=== PATIENT | male | born 1940 | race Caucasian/White ===

== ENCOUNTER → 2018-11-10 09:01 | Outpatient (CLI) | payer MEDICARE, OTHER, SELFPAY ==
--- NOTE | 2018-11-10 | DI.ECHO.S_ITS ---
[facility] +---------+ : : [address] : [place] [address] : : : : [id number] : : : : Phone: [phone]+ Echocardiogram Report + + :Name: LOC VILLALBA Study Date: 11/10/2018 Height: 74 in : :[facility] Weight: 234 lb : : Gender: Male BSA: 2.3 m2 : :: 1940 Age: 78 yrs BP: 152/50 mmHg: :Reason For Study: Chest pain : : Performed By: Louise Patel : :Referring: ZAHIRA GARCIA : + + Interpretation Summary Normal left ventricle size with ejection fraction 60-65%. Diastolic parameters suggest a relaxation abnormality of the left ventricle, consistent with probable normal filling pressures. Mildly dilated left atrium. No valvular abnormality. Mildly dilated aortic root. The ascending aorta is at the upper limits of normal in size. Procedure: A two-dimensional transthoracic echocardiogram with color flow and Doppler was performed. The study quality was technically adequate. There is no prior echocardiogram noted for this patient. The patient was in normal sinus rhythm during the exam. Left Ventricle: The left ventricle is normal in size. There is normal left ventricular wall thickness. The ejection fraction is estimated to be 60-65%. There are no focal wall motion abnormalities. Diastolic parameters suggest a relaxation abnormality of the left ventricle, consistent with probable normal filling pressures. Right Ventricle: The right ventricle grossly appears normal in size with probable normal systolic function. Atria: The left atrium is mildly dilated. Right atrial size is normal. The interatrial septum is intact with no evidence for an atrial septal defect. Mitral Valve: The mitral valve is normal in structure and function. There is no mitral regurgitation noted. Aortic Valve: The aortic valve is trileaflet. The aortic valve opens well. There is trace aortic regurgitation. Tricuspid Valve: The tricuspid valve is normal in structure and function. There is a trace or physiologic amount of tricuspid regurgitation. The right ventricular systolic pressure is estimated to be at least 22 mmHg based on an estimated right atrial pressure of 3 mm Hg. Pulmonic Valve: The pulmonic valve is not well seen, but is grossly normal. There is no pulmonic valvular regurgitation. Great Vessels: The aortic root is mildly dilated. The ascending aorta is at the upper limits of normal in size. The aortic arch is normal in size. The IVC is of normal diameter and collapses greater than 50% with a sniff. This suggests a low right atrial pressure of 3 mm Hg. Pericardium/ Pleura There is no pericardial effusion. There is no pleural effusion. MMode/2D Measurements & Calculations LVIDd: 4.6 cm Ao root diam: 4.1 cm LVIDs: 2.7 cm Aortic Jxn: 3.1 cm FS: 42.3 % asc Aorta Diam: 3.5 cm IVSd: 0.98 cm Ao Arch Diam (Prox Trans): 2.7 cm LVPWd: 0.92 cm LV hodges. diameter/BSA (cm/m^2): 2.0 LV sys. diameter/BSA (cm/m^2): 1.1 LA dimension: 3.8 cm RA long axis: 4.9 cm LA A2 area: 27.8 cm2 RA area: 20.8 cm2 LA A4 area: 24.6 cm2 RA vol: 74.6 ml LA length (vol): 5.8 cm RA : 32.1 ml/m2 LA vol: 100.4 ml IVC diam: 1.4 cm LA vol index: 43.2 ml/m2 RVDd major: 7.0 cm RVD1 (basal): 4.2 cm RVD2 (mid): 3.7 cm Doppler Measurements & Calculations Ao V2 max: 125.4 cm/sec AI P1/2t: 849.9 msec Ao V2 mean: 87.9 cm/sec AI dec slope: 123.6 cm/sec2 Ao max P.3 mmHg Ao mean P.5 mmHg Ao V2 VTI: 28.8 cm MV E max prudencio: 73.3 cm/sec TR max prudencio: 216.1 cm/sec MV A max prudencio: 94.4 cm/sec TR max P.7 mmHg MV E/A: 0.78 PA V2 max: 91.1 cm/sec Med Peak E' Prudencio: 9.8 cm/sec PA V2 mean: 65.3 cm/sec E/E' med: 7.5 PA mean P.9 mmHg Lat Peak E' Prudencio: 8.6 cm/sec PA Accel Time: 0.13 sec E/E' lat: 8.5 E/e' average: 8.0 MV dec time: 0.24 sec MV P1/2t: 70.1 msec MV P1/2t max prudencio: 73.7 cm/sec MVA(P1/2t): 3.1 cm2 Electronically signed by: Moustapha Martin on Reading Physician:11/10/2018 12:43 PM
== END ==
PROVIDERS: PCP Internal Medicine; Visit Provider Internal Medicine
DX: R07.9 Chest pain, unspecified (principal); I51.7 Cardiomegaly
CPT/HCPCS: 93306

== ENCOUNTER → 2019-01-12 08:02 | Outpatient (CLI) | payer MEDICARE, OTHER, SELFPAY ==
[2019-01-12 09:17] LABS: Add Manual Diff / Slide Review NO; Basophils Absolute Auto 0 /uL (0-100); Basophils Percent Auto 0.4 % (0-2); Eosinophils Absolute Auto 100 /uL (0-450); Eosinophils Percent Auto 1.8 % (2-4); Hematocrit 40.4 % (41-53); Hemoglobin 13.9 g/dL (13.5-17.5); Lymphocytes Absolute Auto 1700 /uL (1100-4500); Lymphocytes Percent Auto 25.6 % (25-40); Mean Corpuscular HGB Conc 34.5 % (30-36); Mean Corpuscular Volume 87.1 fL (80-100); Monocytes Absolute Auto 500 /uL (0-900); Monocytes Percent Auto 7.6 % (3-14); Neutrophils Absolute Auto 4200 /uL (1500-7000); Neutrophils Percent Auto 64.6 % (50-75); Platelet Count 187 X10^3/uL (150-400); Red Blood Cell Count 4.64 X10^6/uL (4.5-5.9); Red Cell Distribution Width 13.4 % (11.6-14.8); White Blood Cell Count 6.5 X10^3/uL (4.5-11.0)
[2019-01-12 09:28] LABS: Alanine Aminotransferase 19 IU/L (21-72); Albumin 3.9 g/dL (3.5-5.0); Albumin Globulin Ratio 1.5 (1.0-2.8); Alkaline Phosphatase 58 U/L (38-126); Aspartate Aminotransferase 23 IU/L (17-59); Blood Urea Nitrogen 22 mg/dL (9-20); Carbon Dioxide 31 mmol/L (22-32); Chloride 101 mmol/L (98-107); Cholesterol 101 mg/dL (140-199); Estimated Glomerular Filt Rate > 60.0 mL/min (>60); Globulin 2.6 g/dL (1.7-4.1); Glucose 95 mg/dL (80-110); HDL Cholesterol 42 mg/dL (40-60); HEMOLYSIS < 15 (0-50); LDL Cholesterol Calculated 48 mg/dL (<100); Potassium 4.4 mmol/L (3.4-5.1); Sodium 140 mmol/L (137-145); Total Protein 6.5 g/dL (6.3-8.2); Triglycerides 54 mg/dL (35-150)
[2019-01-12 09:54] LABS: TSH w/ Reflex to FT4 2.72 uIU/mL (0.47-4.68)
[2019-01-12 09:57] LABS: Prostate Specific Antigen 2.26 ng/mL (0.10-4.00)
== END ==
PROVIDERS: PCP Internal Medicine; Visit Provider Internal Medicine
DX: E78.2 Mixed hyperlipidemia (principal); I25.10 Atherosclerotic heart disease of native coronary artery without angina pectoris; N40.0 Benign prostatic hyperplasia without lower urinary tract symptoms
CPT/HCPCS: 36415; 80053; 80061; 84153; 84443; 85025

== ENCOUNTER → 2020-01-23 19:06 | Outpatient (ROUT) | payer MEDICARE, OTHER, SELFPAY ==
[2020-01-23 19:25] LABS: Aspartate Aminotransferase 24 IU/L (17-59); BUN Creatinine Ratio 20.5 (6-22); Blood Urea Nitrogen 24 mg/dL (9-20); Calcium 9.3 mg/dL (8.4-10.2); Carbon Dioxide 30 mmol/L (22-32); Chloride 103 mmol/L (98-107); Cholesterol 112 mg/dL (140-199); Estimated Glomerular Filt Rate > 60.0 mL/min (>60); Glucose 90 mg/dL (80-110); HEMOLYSIS < 15 (0-50); Potassium 4.2 mmol/L (3.4-5.1); Sodium 139 mmol/L (137-145); Triglycerides 174 mg/dL (35-150)
[2020-01-23 19:40] LABS: HDL Cholesterol 47 mg/dL (40-60); LDL Cholesterol Calculated 30 mg/dL (<100)
[2020-01-23 19:56] LABS: Prostate Specific Antigen 2.16 ng/mL (0.10-4.00)
== END ==
PROVIDERS: PCP Internal Medicine; Visit Provider Internal Medicine
DX: I10 Essential (primary) hypertension (principal); E78.2 Mixed hyperlipidemia; N40.0 Benign prostatic hyperplasia without lower urinary tract symptoms
CPT/HCPCS: 80048; 80061; 84153; 84450

== ENCOUNTER 2020-04-19 08:03 | Emergency (ER) | payer MEDICARE, OTHER, SELFPAY ==
--- NOTE | 2020-04-19 08:13 | DI.RAD.S_ITS ---
PROCEDURE: XR CHEST 1V INDICATIONS: chest pain TECHNIQUE: One view of the chest was acquired. COMPARISON: [facility], , CHEST 2 VIEW, 10/09/2013, 14:21. 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 Lungs and pleura: On this semiupright portable chest examination, no large pneumothorax or large pleural effusions are seen. No focal infiltrates are seen. Mediastinum: The cardiac contours are within normal limits. The aorta demonstrates calcification and tortuosity. Bones and chest wall: No suspicious bony lesions. Age-appropriate bony degenerative changes are seen. Overlying soft tissues appear unremarkable. IMPRESSION: Portable chest within normal limits for age. Dictated by: Steven Townsend M.D. on 04/19/2020 at 7:44 Approved by: Steven Townsend M.D. on 04/19/2020 at 7:45
--- NOTE | 2020-04-19 08:15 | ED.CHESTPAIN ---
HPI - Chest Pain General Chief Complaint: Chest Pain Stated Complaint: Chest pain/Lt side Time Seen by Provider: 04/19/20 08:12 Source: patient Mode of arrival: Ambulatory Limitations: no limitations History of Present Illness HPI narrative: 80-year-old male with history of hypertension and hyperlipidemia is a former smoker and presents with a chief complaint of pain on his left side chest wall has been present off and on for about 1 year. He states that sharp in nature an absent of any obvious provocation or palliation. He denies any radiation of his pain. He denies associated symptoms such as dizziness, weakness or lightheadedness. He denies any nausea or vomiting. He denies any unexplained diaphoresis. He denies any exertional component, and in fact states that he routinely exercises with his and has no change in his exercise tolerance or level of fatigue. He denies any injury or overuse. 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 MD complaint: chest pain Onset (ago): month(s) Duration: intermittent Pain location: left chest Severity: moderate Severity scale (1-10): 4 Quality: sharp Pain radiation: none Relieving factors: nothing Exacerbating factors: nothing Treatments prior to arrival chest pain: none Related Data Home Medications Medication Instructions Recorded Confirmed atorvastatin [Lipitor] 10 mg PO Q DAY #0 07/19/11 losartan 100 mg PO QDAY #0 07/19/11 Previous Rx's Medication Instructions Recorded metoprolol succinate [Toprol XL] 50 mg PO QDAY #30 08/03/11 Allergies Allergy/AdvReac Type Severity Reaction Status Date / Time No Known Drug Allergies Allergy Verified 04/19/20 08:26 Review of Systems Constitutional Constitutional: Denies chills, Denies fatigue, Denies fever(s), Denies frequent falls, Denies lethargy and Denies weakness Eyes Eyes: Denies change in vision, Denies eye discharge, Denies irritation and Denies loss of vision ENT Ears, Nose, Mouth, and Throat: Denies change in voice, Denies dizziness, Denies neck pain, Denies sore throat and Denies throat swelling Cardiovascular Cardiovascular: Reports chest pain, Denies irregular heart rhythm, Denies lightheadedness, Denies palpitations, Denies dyspnea, Denies dyspnea on exertion and Denies orthopnea Respiratory Respiratory: Denies cough, Denies dyspnea, Denies dyspnea on exertion and Denies wheezing Gastrointestinal Gastrointestinal: Denies abdominal pain, Denies change in bowel habits, Denies diarrhea, Denies nausea and Denies vomiting Musculoskeletal Musculoskeletal: Denies neck pain and Denies numbness Integumentary/Breasts Skin/Breast: Denies pruritus, Denies erythema, Denies rash and Denies wounds Neurologic Neurologic: Denies behavioral changes, Denies confusion, Denies dizziness, Denies frequent falls, Denies loss of vision, Denies numbness and Denies weakness Psychiatric Psychiatric: Denies anxiety, Denies behavioral changes, Denies confusion, Denies depression, Denies homicidal ideation and Denies suicidal ideation Endocrine Endocrine: Denies fatigue, Denies flushing and Denies palpitations Hematologic/Lymphatic Hematologic/Lymphatic: Denies easy bruising Allergic/Immunologic Allergic/Immunologic: Denies urticaria, Denies throat swelling and Denies wheezing Patient History Social History Smoking Status: Former smoker Smoking Status: Former smoker alcohol intake frequency: 0-2 drinks per day Substance Use Type: does not use Exam Narrative Exam Narrative: GENERAL: [80] year old patient appears stated age. Well-nourished, well-developed patient, in mild distress. HEAD: Atraumatic. Normocephalic. EYES: Pupils equal round and reactive. Extraocular motions intact. No scleral icterus. No injection or drainage. ENT: Nose without bleeding, purulent drainage. Throat without erythema, tonsillar hypertrophy or exudate. Airway patent. NECK: Trachea midline. Non tender CARDIOVASCULAR: Regular rate and rhythm without murmurs, gallops, or rubs. Reproducible sharp pain on left lower lateral rib. No obvious external manifestation of injury or illness such as erythema or rash RESPIRATORY: Clear to auscultation. Breath sounds equal bilaterally. No wheezes, rales, or rhonchi. GASTROINTESTINAL: Abdomen soft, non-tender, nondistended. EXTREMITIES: No edema or joint tenderness. BACK: Nontender without deformity or crepitance. No flank tenderness. NEURO: AOx3. SKIN: No rash or erythema of visible areas Initial Vital Signs Initial Vital Signs: Vital Signs Temperature 98.4 F 04/19/20 08:22 Pulse Rate 88 04/19/20 08:22 Respiratory Rate 18 01/02/21 08:22 Blood Pressure 194/85 H 04/19/20 08:22 Pulse Oximetry 99 04/19/20 08:22 Scores HEART Score Heart Score history: Slightly Suspicious Heart Score EKG: Normal Heart Score Age: > or = 65 years old Heart Score risk factors: 1-2 risk factors Heart Score troponin: < or = to normal limit Heart Score Total: 3 PERC Score Age greater than or equal to 50 years: Yes Heart rate greater than or equal to 100 bpm: No Room Air O2 Sat less than 95%: No Unilateral leg swelling: No Recent trauma or surgery: No Hemoptysis: No Prior PE or DVT: No Hormone Use: No Total PERC Score: 1 Wells' Criteria for PE Clinical signs and symptoms of DVT: No PE is #1 Dx or equally likely: No Heart rate > 100: No Immobilization at least 3 days or surg in previous 4 weeks: No History of PE or DVT: No Hemoptysis: No Malignancy w/Treatment within 6 months or palliative: No Wells' PE Score total: 0 Course Orders Ordered: ED Orders 04/19/20 08:55 COVID19 Stat Discontinued Medications Acetaminophen (Acetaminophen 325 Mg Tablet) 975 mg PO NOW ONE Stop: 04/19/20 08:43 Aspirin (Aspirin 81 Mg Chew Tab) 324 mg PO NOW ONE Stop: 04/19/20 08:14 Last Admin: 04/19/20 08:37 Dose: 324 mg Documented by: STEFANY Sodium Chloride (Normal Saline 0.9%) 1,000 mls @ 150 mls/hr IV CONT AMADA Last Infusion: 04/19/20 10:34 Dose: 0 mls/hr Documented by: Admin: 04/19/20 08:38 Dose: 150 mls/hr Documented by: STEFANY Metoprolol Tartrate (Metoprolol Tartrate 5 Mg/5 Ml Inj) 5 mg IV NOW ONE Stop: 04/19/20 08:14 Nitroglycerin (Nitroglycerin 0.4 Mg Sl Tab) 0.4 mg SL [id number] PRN PRN Reason: Chest Pain Last Admin: 04/19/20 08:56 Dose: 0.4 mg Documented by: Admin: 04/19/20 08:47 Dose: 0.4 mg Documented by: Admin: 04/19/20 08:38 Dose: 0.4 mg Documented by: STEFANY Reevaluation(s) Reevaluation #1: NG improving pain, developing DASH Time: 08:47 Consultations Consultation #1: Discussed with on-call Cardiology in [place]. Given his resolution of symptoms with nitro, lack of ischemic findings on EKGs, normal troponin and normal D-dimer they recommend increasing long-acting nitrate from 30-60 mg daily, give appropriate return precautions and request referral to their cardiology They specifically state there is no indication for admission or transfer this point time Vital Signs Vital signs: Vital Signs - 8 hr 04/19/20 10:36 Pulse Rate 62 Respiratory Rate 16 Blood Pressure 131/60 Pulse Oximetry 98 MDM - Chest Pain Lab Data Result diagrams: 04/19/20 08:15 04/19/20 08:15 Labs: Lab Results 04/19/20 04/19/20 04/19/20 Range/Units 08:15 08:15 08:15 WBC 8.2 (4.5-11.0) X10^3/uL RBC 5.00 (4.5-5.9) X10^6/uL Hgb 14.7 (13.5-17.5) g/dL Hct 43.2 (41-53) % MCV 86.4 (80-100) fL MCH 29.3 (26-34) PG MCHC 34.0 (30-36) % RDW 13.6 (11.6-14.8) % Plt Count 186 (150-400) X10^3/uL Neut % (Auto) 62.7 (50-75) % Lymph % (Auto) 27.0 (25-40) % Lamb % (Auto) 8.4 (3-14) % Eos % (Auto) 1.4 L (2-4) % Baso % (Auto) 0.5 (0-2) % Neut # (Auto) 5200 (5079-5188) /uL Lymph # (Auto) 2200 (6196-4951) /uL Lamb # (Auto) 700 (0-900) /uL Eos # (Auto) 100 (0-450) /uL Baso # (Auto) 0 (0-100) /uL PT 12.0 (10.1-12.7) SECONDS INR 1.0 (0.9-1.3) APTT 30 (26.4-36.2) SECONDS D-Dimer (<230) ng/mL Sodium 137 (137-145) mmol/L Potassium 3.8 (3.4-5.1) mmol/L Chloride 102 (98-107) mmol/L Carbon Dioxide 31 (22-32) mmol/L BUN 23 H (9-20) mg/dL Creatinine 0.99 (0.66-1.25) mg/dL Estimated GFR > 60.0 (>60) mL/min BUN/Creatinine Ratio 23.2 H (6-22) Glucose 140 H (80-110) mg/dL Calcium 9.1 (8.4-10.2) mg/dL Total Bilirubin 2.0 H (0.2-1.3) mg/dL AST 25 (17-59) IU/L ALT 20 (<50) IU/L Alkaline Phosphatase 58 (38-126) U/L Total Creatine Kinase 87 (55-170) U/L CK-MB (CK-2) TNP CK-MB (CK-2) Rel Index TNP Troponin I < 0.012 (0.01-0.034) ng/mL NT-Pro-B Natriuret Pep 159 (<450) pg/mL Total Protein 6.9 (6.3-8.2) g/dL Albumin 4.1 (3.5-5.0) g/dL Globulin 2.8 (1.7-4.1) g/dL Albumin/Globulin Ratio 1.5 (1.0-2.8) Lipase 95 (23-300) U/L SARS-CoV-2 (PCR) (Negative) 04/19/20 04/19/20 Range/Units 08:15 08:55 WBC (4.5-11.0) X10^3/uL RBC (4.5-5.9) X10^6/uL Hgb (13.5-17.5) g/dL Hct (41-53) % MCV (80-100) fL MCH (26-34) PG MCHC (30-36) % RDW (11.6-14.8) % Plt Count (150-400) X10^3/uL Neut % (Auto) (50-75) % Lymph % (Auto) (25-40) % Lamb % (Auto) (3-14) % Eos % (Auto) (2-4) % Baso % (Auto) (0-2) % Neut # (Auto) (8401-6619) /uL Lymph # (Auto) (2306-3404) /uL Lamb # (Auto) (0-900) /uL Eos # (Auto) (0-450) /uL Baso # (Auto) (0-100) /uL PT (10.1-12.7) SECONDS INR (0.9-1.3) APTT (26.4-36.2) SECONDS D-Dimer < 200 (<230) ng/mL Sodium (137-145) mmol/L Potassium (3.4-5.1) mmol/L Chloride (98-107) mmol/L Carbon Dioxide (22-32) mmol/L BUN (9-20) mg/dL Creatinine (0.66-1.25) mg/dL Estimated GFR (>60) mL/min BUN/Creatinine Ratio (6-22) Glucose (80-110) mg/dL Calcium (8.4-10.2) mg/dL Total Bilirubin (0.2-1.3) mg/dL AST (17-59) IU/L ALT (<50) IU/L Alkaline Phosphatase (38-126) U/L Total Creatine Kinase (55-170) U/L CK-MB (CK-2) CK-MB (CK-2) Rel Index Troponin I (0.01-0.034) ng/mL NT-Pro-B Natriuret Pep (<450) pg/mL Total Protein (6.3-8.2) g/dL Albumin (3.5-5.0) g/dL Globulin (1.7-4.1) g/dL Albumin/Globulin Ratio (1.0-2.8) Lipase (23-300) U/L SARS-CoV-2 (PCR) Negative (Negative) Imaging Data Chest x-ray: Radiologist's Impression: [address] [id number] ReportSigned Patient: Helder Quintanilla [facility]#: [id number]: 1Acct:[id number]/Sex: 80 / MDate of Service: 04/19/20Loc: EDAccession Number: [id number] Procedure: XR chest 1V Ordering Provider: Galo Go D.O. PROCEDURE: XR CHEST 1V INDICATIONS: chest pain TECHNIQUE: One view of the chest was acquired. COMPARISON: [facility], CHEST 2 VIEW, 10/09/2013, 14:21. 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 Lungs and pleura: On this semiupright portable chest examination, no large pneumothorax or large pleural effusions are seen. No focal infiltrates are seen. Mediastinum: The cardiac contours are within normal limits. The aorta demonstrates calcification and tortuosity. Bones and chest wall: No suspicious bony lesions. Age-appropriate bony degenerative changes are seen. Overlying soft tissues appear unremarkable. IMPRESSION: Portable chest within normal limits for age. Dictated by: Steven Townsend M.D. on 04/19/2020 at 7:44 Approved by: Steven Townsend M.D. on 04/19/2020 at 7:45 ECG Data Attestation: I personally reviewed and interpreted this ECG as follows: Interpretation: Sinus arrhythmia, rate 70. No ST elevations or depressions. No T-wave peaking or inversions. Appropriate R-wave progression. No ectopy. Discharge Plan Departure Patient Disposition: Home Clinical Impression: Stable angina Instructions: DI for Angina Activity Restrictions/Additional Instructions: *You have been diagnosed with [chest pain, likely due to angina] *What to do: *Take medications as directed: After speaking with Cardiology at [facility] they request you increase your Isosorbide Mononitrate from 30mg daily to 60mg daily. Be sure you don't take any Cialis or Viagra along with this as it can cause a significant blood pressure drop. *Follow up with your primary care provider in 2-3 days, call for an appointment. Let them know you were seen in the Emergency Department and that we ask that you be seen in follow up. The cardiology group requests Dr.. Christina put in an urgent referral to their group. *Return to ER if you should have any new, worsening or concerning symptoms, such as [return of pain, shortness of breath, unexplained sweating or other ] Prescriptions: No Action atorvastatin [Lipitor] 10 MG tablet 10 mg PO Q DAY Qty: 0 RF: 0 losartan 100 MG tablet 100 mg PO QDAY Qty: 0 RF: 0 metoprolol succinate [Toprol XL] 50 MG tablet extended release 24 hr 50 mg PO QDAY Qty: 30 RF: 2 Referrals: August Christina MD [Primary Care Provider] - Dimas Garecs [Non-Staff] -
[2020-04-19 08:22] VITALS: BP 194/85; PULSE 88; RESP 18; TEMP 36.9; O2SAT 99; BMI 29.8
[2020-04-19 08:23] LABS: Add Manual Diff / Slide Review NO; Basophils Absolute Auto 0 /uL (0-100); Basophils Percent Auto 0.5 % (0-2); Eosinophils Absolute Auto 100 /uL (0-450); Eosinophils Percent Auto 1.4 % (2-4); Hematocrit 43.2 % (41-53); Hemoglobin 14.7 g/dL (13.5-17.5); Lymphocytes Absolute Auto 2200 /uL (1100-4500); Mean Corpuscular Hemoglobin 29.3 PG (26-34); Mean Corpuscular Volume 86.4 fL (80-100); Monocytes Absolute Auto 700 /uL (0-900); Monocytes Percent Auto 8.4 % (3-14); Neutrophils Absolute Auto 5200 /uL (1500-7000); Neutrophils Percent Auto 62.7 % (50-75); Platelet Count 186 X10^3/uL (150-400); Red Cell Distribution Width 13.6 % (11.6-14.8); White Blood Cell Count 8.2 X10^3/uL (4.5-11.0)
[2020-04-19 08:31] LABS: PTT Partial Thromboplastin Tim 30 SECONDS (26.4-36.2)
[2020-04-19 08:33] LABS: Alanine Aminotransferase 20 IU/L (<50); Albumin 4.1 g/dL (3.5-5.0); Albumin Globulin Ratio 1.5 (1.0-2.8); Alkaline Phosphatase 58 U/L (38-126); Aspartate Aminotransferase 25 IU/L (17-59); BUN Creatinine Ratio 23.2 (6-22); Blood Urea Nitrogen 23 mg/dL (9-20); Calcium 9.1 mg/dL (8.4-10.2); Carbon Dioxide 31 mmol/L (22-32); Chloride 102 mmol/L (98-107); Creatine Kinase 87 U/L (55-170); Estimated Glomerular Filt Rate > 60.0 mL/min (>60); Globulin 2.8 g/dL (1.7-4.1); Glucose 140 mg/dL (80-110); HEMOLYSIS 17 (0-50); Lipase 95 U/L (23-300); Potassium 3.8 mmol/L (3.4-5.1); Sodium 137 mmol/L (137-145); Total Protein 6.9 g/dL (6.3-8.2)
[2020-04-19] MEDS: ASPIRIN 81 MG CHEW TAB 324 MG PO (08:37)
[2020-04-19 08:38] VITALS: BP 138/65; PULSE 77
[2020-04-19] MEDS: NITROGLYCERIN 0.4 MG SL TAB SL ×3 (08:38→08:56)
[2020-04-19] MEDS: SODIUM CHLORIDE 0.9% 1,000 ML 150 ML IV (08:38)
[2020-04-19 08:45] LABS: NT-proBNP (BNP-Adult 18+) 159 pg/mL (<450); Troponin I < 0.012 ng/mL (0.01-0.034)
[2020-04-19 08:46] LABS: D Dimer < 200 ng/mL (<230)
[2020-04-19 08:47] VITALS: BP 125/60; PULSE 60
[2020-04-19 08:56] VITALS: BP 122/60; PULSE 62
[2020-04-19 09:11] LABS: COVID19 -Nasal RAPID Negative (Negative)
[2020-04-19 10:36] VITALS: BP 131/60; PULSE 62; RESP 16; O2SAT 98
== END 2020-04-19 10:39 | disposition home or self-care (01) ==
PROVIDERS: Emergency Provider Emergency Medicine; PCP Internal Medicine
DX: I20.8 Other forms of angina pectoris (principal); I10 Essential (primary) hypertension; E78.5 Hyperlipidemia, unspecified; Z20.822 Contact with and (suspected) exposure to COVID-19
CPT/HCPCS: 36415; 71045; 80053; 82550; 83690; 83880; 84484; 85025; 85379; 85610; 85730; 87635; 93005; 96360; 96361; 99283; 99284

== ENCOUNTER → 2021-12-25 09:34 | Outpatient (CLI) | payer MEDICARE, OTHER, SELFPAY ==
[2021-12-25 10:21] LABS: Hematocrit 40.8 % (41-53); Mean Corpuscular HGB Conc 34.3 % (30-36); Mean Corpuscular Hemoglobin 29.4 PG (26-34); Mean Corpuscular Volume 85.8 fL (80-100); Platelet Count 182 X10^3/uL (150-400); Red Blood Cell Count 4.76 X10^6/uL (4.5-5.9); Red Cell Distribution Width 14.3 % (11.6-14.8)
[2021-12-25 11:16] LABS: Alanine Aminotransferase 19 IU/L (<50); Albumin 3.9 g/dL (3.5-5.0); Albumin Globulin Ratio 1.4 (1.0-2.8); Alkaline Phosphatase 64 U/L (38-126); Aspartate Aminotransferase 25 IU/L (17-59); BUN Creatinine Ratio 22.9 (6-22); Bilirubin Total 2.3 mg/dL (0.2-1.3); Blood Urea Nitrogen 22 mg/dL (9-20); Calcium 8.6 mg/dL (8.4-10.2); Carbon Dioxide 30 mmol/L (22-32); Chloride 100 mmol/L (98-107); Cholesterol 105 mg/dL (140-199); Estimated Glomerular Filt Rate > 60 mL/min (>60); Globulin 2.8 g/dL (1.7-4.1); Glucose 92 mg/dL (80-110); HDL Cholesterol 43 mg/dL (40-60); HEMOLYSIS < 15 (0-50); LDL Cholesterol Calculated 47 mg/dL (<100); Potassium 3.9 mmol/L (3.4-5.1); Sodium 137 mmol/L (137-145); Total Protein 6.7 g/dL (6.3-8.2); Triglycerides 76 mg/dL (35-150)
[2021-12-25 11:47] LABS: TSH w/ Reflex to FT4 1.93 uIU/mL (0.47-4.68)
[2021-12-25 12:05] LABS: Vitamin B12 204 pg/mL (239-931)
== END ==
PROVIDERS: PCP Internal Medicine; Referring Provider Internal Medicine; Visit Provider Internal Medicine
DX: E53.8 Deficiency of other specified B group vitamins (principal); E78.2 Mixed hyperlipidemia; G62.9 Polyneuropathy, unspecified; I10 Essential (primary) hypertension; I25.118 Atherosclerotic heart disease of native coronary artery with other forms of angina pectoris
CPT/HCPCS: 36415; 80053; 80061; 82607; 84443; 85027

== ENCOUNTER → 2022-06-29 07:48 | Outpatient (CLI) | payer MEDICARE, OTHER, SELFPAY ==
[2022-06-29 09:04] LABS: HEMOLYSIS < 15 (0-50)
[2022-06-29 09:13] LABS: Aspartate Aminotransferase 24 IU/L (17-59); BUN Creatinine Ratio 18.6 (6-22); Blood Urea Nitrogen 16 mg/dL (9-20); Calcium 8.9 mg/dL (8.4-10.2); Carbon Dioxide 33 mmol/L (22-32); Chloride 102 mmol/L (98-107); Cholesterol 106 mg/dL (140-199); Estimated Glomerular Filt Rate > 60 mL/min (>60); Glucose 91 mg/dL (80-110); HDL Cholesterol 45 mg/dL (40-60); LDL Cholesterol Calculated 48 mg/dL (<100); Sodium 141 mmol/L (137-145); Triglycerides 66 mg/dL (35-150)
[2022-06-29 09:59] LABS: Vitamin B12 304 pg/mL (239-931)
[2022-07-02 04:59] LABS: Prostate Specific Antigen 2.18 ng/mL (0.10-4.00)
== END ==
PROVIDERS: PCP Internal Medicine; Referring Provider Internal Medicine; Visit Provider Internal Medicine
DX: E78.2 Mixed hyperlipidemia (principal); N40.0 Benign prostatic hyperplasia without lower urinary tract symptoms; E53.8 Deficiency of other specified B group vitamins; I10 Essential (primary) hypertension; I25.10 Atherosclerotic heart disease of native coronary artery without angina pectoris
CPT/HCPCS: 36415; 80048; 80061; 82607; 84153; 84450

== ENCOUNTER → 2023-07-04 08:34 | Outpatient (CLI) | payer MEDICARE, OTHER, SELFPAY ==
[2023-07-04 09:38] LABS: Hematocrit 40.8 % (41-53); Mean Corpuscular HGB Conc 34.3 % (30-36); Mean Corpuscular Hemoglobin 29.5 PG (26-34); Mean Corpuscular Volume 86.1 fL (80-100); Platelet Count 187 X10^3/uL (150-400); Red Blood Cell Count 4.74 X10^6/uL (4.5-5.9); Red Cell Distribution Width 13.9 % (11.6-14.8); White Blood Cell Count 6.2 X10^3/uL (4.5-11.0)
[2023-07-04 10:08] LABS: Aspartate Aminotransferase 24 IU/L (17-59); BUN Creatinine Ratio 22.9 (6-22); Blood Urea Nitrogen 22 mg/dL (9-20); Carbon Dioxide 30 mmol/L (22-32); Chloride 104 mmol/L (98-107); Cholesterol 100 mg/dL (140-199); Estimated Glomerular Filt Rate > 60 mL/min (>60); Glucose 101 mg/dL (80-110); HDL Cholesterol 50 mg/dL (40-60); HEMOLYSIS < 15 (0-50); LDL Cholesterol Calculated 38 mg/dL (<100); Potassium 4.1 mmol/L (3.4-5.1); Sodium 138 mmol/L (137-145); Triglycerides 60 mg/dL (35-150)
[2023-07-04 10:28] LABS: Prostate Specific Antigen 3.35 ng/mL (0.10-4.00)
[2023-07-04 10:47] LABS: Vitamin B12 260 pg/mL (239-931)
== END ==
PROVIDERS: PCP Internal Medicine; Referring Provider Internal Medicine; Visit Provider Internal Medicine
DX: E53.8 Deficiency of other specified B group vitamins (principal); I10 Essential (primary) hypertension; N40.1 Benign prostatic hyperplasia with lower urinary tract symptoms; E78.2 Mixed hyperlipidemia; N13.8 Other obstructive and reflux uropathy
CPT/HCPCS: 36415; 80048; 80061; 82607; 84153; 84450; 85027

== ENCOUNTER → 2024-04-10 11:31 | Outpatient (CLI) | payer MEDICARE, OTHER, SELFPAY ==
--- NOTE | 2024-04-10 11:32 | DI.RAD.S_ITS ---
PROCEDURE: XR LUMBAR SPINE 2-3V INDICATIONS: spinal stenosis TECHNIQUE: 3 views of the lumbar spine were acquired. COMPARISON: None. FINDINGS: Bones: 5 [id number] vertebrae are present. There is normal bony alignment. No vertebral body compression fractures. No suspicious bony lesions. Moderate degenerative disc changes throughout the lumbar spine. Mild facet hypertrophy throughout the lumbar spine. Soft tissues: Overlying bowel gas pattern is normal. No suspicious soft tissue calcifications. IMPRESSION: Multilevel degenerative disc disease. Multilevel facet arthropathy. No fracture. No acute osseous lesion. If symptoms and/or clinical suspicion for pathology persists, evaluation with MRI should be considered for further assessment. Dictated by: Marija Stone MD, PhD on 04/10/2024 at 12:26 Approved by: Marija Stone MD, PhD on 04/10/2024 at 12:32
== END ==
PROVIDERS: PCP Internal Medicine; Referring Provider Internal Medicine; Visit Provider Internal Medicine
DX: M48.062 Spinal stenosis, lumbar region with neurogenic claudication (principal); M51.369 Other intervertebral disc degeneration, lumbar region without mention of lumbar back pain or lower extremity pain; M47.816 Spondylosis without myelopathy or radiculopathy, lumbar region
CPT/HCPCS: 72100

== ENCOUNTER → 2024-04-12 10:59 | Outpatient (CLI) | payer MEDICARE, OTHER, SELFPAY ==
--- NOTE | 2024-04-12 11:01 | DI.MRI.S_ITS ---
PROCEDURE: MR LUMBAR SPINE WO CON INDICATIONS: spinal stenosis TECHNIQUE: Noncontrast sagittal T1 spin echo and T2 fast echo, sagittal STIR, and T2 fast spin echo through the lumbar spine. In cases with scoliosis, additional coronal T2 fast spin echo may be performed. COMPARISON: None. FINDINGS: Alignment and Curvature: L5 pars defects and grade 1 anterior spondylolisthesis at L5-S1 Bone Marrow: Multilevel degenerative endplate changes Spinal Cord: Conus medullaris terminates at the L1 level. Visualized cord demonstrates normal signal and size. Paraspinous Soft Tissues: Fatty atrophy of the paraspinal musculature, right greater than left, particularly at the L2 level T12-L1: No central or foraminal stenosis L1-L2: No central or foraminal stenosis L2-L3: Disc bulge and arthropathy. Mild central stenosis. Moderate bilateral foraminal stenosis L3-L4: Disc bulge and arthropathy. Mild central stenosis. Moderate bilateral foraminal stenosis L4-L5: Disc bulge and arthropathy. [id number] central stenosis Moderate to severe bilateral foraminal stenosis L5-S1: Disc bulge and arthropathy. Mild central stenosis. Severe bilateral foraminal stenosis. IMPRESSION: Multilevel degenerative disc disease and arthropathy results in varying degrees of central and foraminal stenosis including mild to moderate central stenosis L4-5 and severe bilateral foraminal stenosis L5-S1. Grade 1 isthmic spondylolisthesis at L5-S1 Approved by: Clarence Aguiar M.D. on 04/12/2024 at 18:09
== END ==
PROVIDERS: PCP Internal Medicine; Referring Provider Internal Medicine; Visit Provider Internal Medicine
DX: M48.062 Spinal stenosis, lumbar region with neurogenic claudication (principal); M48.07 Spinal stenosis, lumbosacral region; M43.17 Spondylolisthesis, lumbosacral region; M51.369 Other intervertebral disc degeneration, lumbar region without mention of lumbar back pain or lower extremity pain; M51.379 Other intervertebral disc degeneration, lumbosacral region without mention of lumbar back pain or lower extremity pain; M47.816 Spondylosis without myelopathy or radiculopathy, lumbar region; M47.817 Spondylosis without myelopathy or radiculopathy, lumbosacral region
CPT/HCPCS: 72148

== ENCOUNTER → 2024-06-17 13:31 | Outpatient (CLI) | payer MEDICARE, OTHER, SELFPAY ==
--- NOTE | 2024-06-17 13:36 | DI.MRI.S_ITS ---
PROCEDURE: MR LUMBAR SPINE WO CON INDICATIONS: DISEASES OF SPINAL CORD TECHNIQUE: Noncontrast sagittal T1 spin echo and T2 fast echo, sagittal STIR, and T2 fast spin echo through the lumbar spine. In cases with scoliosis, additional coronal T2 fast spin echo may be performed. COMPARISON: [facility], MR, MR LUMBAR SPINE WO CON, 04/12/2024, 11:22. FINDINGS: Image quality: Excellent. Alignment and Curvature: Grade 1 anterolisthesis of L5 on S1 with bilateral pars interarticularis defects. Mild levocurvature. Bone Marrow: Multilevel degenerative endplate changes. Marrow is of normal overall signal. No acute vertebral body compression fractures. Spinal Cord: Conus medullaris terminates at the L1 level. Visualized cord demonstrates normal signal and size. Paraspinous Soft Tissues: No paravertebral masses. T12-L1: Normal appearance. L1-L2: Normal appearance. L2-L3: Disc desiccation and moderate height loss. Diffuse disc bulge with posterior annular tear. Facet arthropathy. Mild central canal stenosis. Moderate bilateral neural foraminal stenosis is stable. L3-L4: Disc desiccation and moderate height loss. Diffuse disc bulge. Facet arthropathy and thickening of ligamentum flavum. Mild central canal stenosis. Moderate bilateral neural foraminal stenosis is stable. L4-L5: Disc desiccation and mild diffuse disc bulge. Facet arthropathy and thickening of ligamentum flavum. Stable mild to moderate central canal stenosis and moderate to severe bilateral neural foraminal stenosis. L5-S1: Anterolisthesis. Disc desiccation and moderate height loss. Facet arthropathy. Mild central canal stenosis. Severe bilateral neural foraminal stenosis. Stable compared to prior. IMPRESSION: 1. Multilevel degenerative changes of the lumbar spine are similar compared to recent prior MRI. 2. [id number] central canal stenosis at L4-5. Multilevel mild central canal stenosis. 3. Severe bilateral neural foraminal stenosis at L5-S1. Moderate to severe bilateral neural foraminal stenosis at L4-5. Dictated by: Be Baron M.D. on 06/18/2024 at 11:12 Approved by: Be Baron M.D. on 06/18/2024 at 11:19
--- NOTE | 2024-06-17 13:36 | DI.MRI.S_ITS ---
PROCEDURE: MR THORACIC SPINE WO CON INDICATIONS: DISEASES OF SPINAL CORD TECHNIQUE: Noncontrast sagittal T1 spine echo and T2 fast spin echo, sagittal STIR, and T2 fast spin echo through the thoracic spine. COMPARISON: None. FINDINGS: Image quality: Excellent. Alignment and Curvature: There is normal bony alignment. Bone Marrow: Multilevel degenerative endplate changes. T11 and T12 vertebral body hemangioma. Marrow is of normal overall signal. No acute vertebral body compression fractures. Spinal Cord: Visualized spinal cord is normal in size and signal. Paraspinous Soft Tissues: No paravertebral masses. Miscellaneous: Multilevel disc desiccation height loss with small posterior disc bulges. On axial images, central canal and foramina appear widely patent at all scanned levels. IMPRESSION: Multilevel degenerative changes of the thoracic spine without significant central canal or neural foraminal stenosis. Dictated by: Be Baron M.D. on 06/18/2024 at 10:37 Approved by: Be Baron M.D. on 06/18/2024 at 10:39
--- NOTE | 2024-06-17 14:25 | DI.RAD.S_ITS ---
PROCEDURE: XR LUMBAR SPINE MIN 4V INDICATIONS: LUMBAR TECHNIQUE: 5 views of the lumbar spine acquired, including flexion and extension views. COMPARISON: [facility], CR, XR LUMBAR SPINE 2-3V, 04/10/2024, 11:32. FINDINGS: Bones: 5 nonrib-bearing vertebrae are present. Slight leftward curvature. No compression deformities. Grade 1 retrolisthesis of L3 on L4 and L2 on L3, which is stable with flexion and extension. Moderate disc height loss at all levels, with facet arthrosis from L4 through S1. Pars defects at L5-S1. Stable grade 1 anterolisthesis of L5 on S1 with flexion and extension. Soft tissues: Overlying bowel gas pattern is normal. No suspicious soft tissue calcifications. Flexion/extension: There is normal range of motion, with preserved alignment. IMPRESSION: Stable grade 1 retrolisthesis of L3 on L4 and L2 on L3, which is stable with flexion and extension. Stable grade 1 anterolisthesis of L5 on S1 due to pars defects. Dictated by: Darrin Hairston M.D. on 06/17/2024 at 21:17 Approved by: Darrin Hairston M.D. on 06/17/2024 at 21:19
--- NOTE | 2024-06-17 14:43 | DI.MRI.S_ITS ---
PROCEDURE: MR CERVICAL SPINE WO CON INDICATIONS: DISEASES OF SPINAL CORD TECHNIQUE: Noncontrast sagittal T1 spin echo and T2 fast spin echo, sagittal STIR, foraminal oblique sagittal T2 fast spin echo, and axial gradient echo or T2 fast spin echo through the cervical spine. COMPARISON: None. FINDINGS: Image quality: Excellent. Alignment and Curvature: Straightening of the normal cervical lordosis. Mild retrolisthesis of L3 on L4. Mild anterolisthesis of L4 on L5. Bone Marrow: Multilevel degenerative endplate changes. Marrow demonstrates normal overall signal. Spinal Cord: Visualized spinal cord has normal size and signal. No cerebellar tonsillar herniation. Paraspinous Soft Tissues: No paravertebral masses. Prevertebral soft tissues are normal in thickness. C2-C3: Disc desiccation and mild posterior disc osteophyte complex. Facet and uncovertebral arthropathy. Mild central canal stenosis. Moderate to severe right and no left neural foraminal stenosis. C3-C4: Disc desiccation and mild height loss. Mild posterior disc osteophyte complex. Facet and uncovertebral arthropathy. Mild central canal stenosis. Severe bilateral neural foraminal stenosis. C4-C5: Disc desiccation and mild posterior disc bulge. Facet and uncovertebral arthropathy. No significant central canal stenosis. Severe right and at least moderate left neural foraminal stenosis. C5-C6: Disc desiccation and mild height loss. Mild posterior disc osteophyte complex. Facet and uncovertebral arthropathy. No central canal stenosis. Mild bilateral neural foraminal stenosis. C6-C7: Disc desiccation and severe height loss. Posterior disc osteophyte complex. Facet arthropathy. No significant central canal stenosis. Mild bilateral neural foraminal stenosis. C7-T1: Disc desiccation and mild height loss. Posterior disc osteophyte complex. Facet and uncovertebral arthropathy. Moderate to severe right and mild left neural foraminal stenosis. IMPRESSION: 1. Multilevel degenerative changes of the cervical spine as described above. 2. Mild central canal stenosis at C2-C3 and C3-C4. 3. Severe neural foraminal stenosis bilaterally at C3-C4 and on the right at C4-C5. Additional multilevel neural foraminal stenosis as described above. Dictated by: Be Baron M.D. on 06/18/2024 at 10:31 Approved by: Be Baron M.D. on 06/18/2024 at 10:37
== END ==
PROVIDERS: PCP Internal Medicine; Referring Provider Anesthesiology Pain Medicine; Visit Provider Anesthesiology Pain Medicine
DX: M47.812 Spondylosis without myelopathy or radiculopathy, cervical region (principal); M48.02 Spinal stenosis, cervical region; M47.814 Spondylosis without myelopathy or radiculopathy, thoracic region; M48.04 Spinal stenosis, thoracic region; M47.26 Other spondylosis with radiculopathy, lumbar region; M47.27 Other spondylosis with radiculopathy, lumbosacral region; M43.16 Spondylolisthesis, lumbar region; M43.17 Spondylolisthesis, lumbosacral region; M48.061 Spinal stenosis, lumbar region without neurogenic claudication; M48.07 Spinal stenosis, lumbosacral region; G95.9 Disease of spinal cord, unspecified
CPT/HCPCS: 72110; 72141; 72146; 72148

== ENCOUNTER → 2024-08-01 08:32 | Outpatient (CLI) | payer MEDICARE, OTHER, SELFPAY ==
[2024-08-01 10:18] LABS: Aspartate Aminotransferase 21 IU/L (17-59); BUN Creatinine Ratio 26.9 (6-22); Blood Urea Nitrogen 28 mg/dL (9-20); Calcium 9.3 mg/dL (8.4-10.2); Carbon Dioxide 28 mmol/L (22-32); Chloride 103 mmol/L (98-107); Cholesterol 93 mg/dL (140-199); Estimated Glomerular Filt Rate > 60 mL/min (>60); Glucose 65 mg/dL (80-110); HDL Cholesterol 41 mg/dL (40-60); HEMOLYSIS < 15 (0-50); LDL Cholesterol Calculated 40 mg/dL (<100); Potassium 3.9 mmol/L (3.4-5.1); Sodium 140 mmol/L (137-145); Triglycerides 60 mg/dL (35-150)
[2024-08-01 10:47] LABS: Prostate Specific Antigen 2.94 ng/mL (0.10-4.00)
[2024-08-01 11:06] LABS: Vitamin B12 764 pg/mL (239-931)
== END ==
PROVIDERS: PCP Internal Medicine; Referring Provider Internal Medicine; Visit Provider Internal Medicine
DX: I10 Essential (primary) hypertension (principal); E78.2 Mixed hyperlipidemia; E53.8 Deficiency of other specified B group vitamins
CPT/HCPCS: 36415; 80048; 80061; 82607; 84153; 84450

== ENCOUNTER → 2024-08-23 13:09 | Outpatient (CLI) | payer MEDICARE, OTHER, SELFPAY ==
--- NOTE | 2024-08-23 13:12 | DI.RAD.S_ITS ---
PROCEDURE: XR SHOULDER RT MIN 2V INDICATIONS: RT SHOULDER PAIN TECHNIQUE: 3 views of the shoulder were acquired. COMPARISON: None. FINDINGS: Bones: No fractures or dislocations. The humeral head is high-riding and there is moderate glenohumeral joint space narrowing and marginal osteophytosis. A surgical anchor overlies the humeral head. Moderate hypertrophic acromioclavicular arthropathy and joint space narrowing noted. No suspicious bony lesions. Visualized ribs appear intact. Soft tissues: No suspicious soft tissue calcifications. IMPRESSION: Degenerative and postsurgical change of the glenohumeral and acromioclavicular joints without evidence of acute bony abnormality. Dictated by: Phillip Song M.D. on 08/24/2024 at 2:27 Approved by: Phillip Song M.D. on 08/24/2024 at 2:28
== END ==
PROVIDERS: PCP Internal Medicine; Referring Provider Internal Medicine; Visit Provider Anesthesiology Pain Medicine
DX: M19.011 Primary osteoarthritis, right shoulder (principal); M25.511 Pain in right shoulder
CPT/HCPCS: 73030

== ENCOUNTER 2025-03-28 09:00 | Outpatient (RCR) | payer MEDICARE, OTHER, SELFPAY ==
--- NOTE | 2025-02-06 12:19 | PT.OPPOC ---
Physical, Occupational & Speech Therapy At [facility] Current Diagnoses Spondylosis without myelopathy or radiculopathy, lumbar region (02/06/25) Strain of muscle, fascia and tendon of lower back, subsequent encounter (02/06/25) Visit Care Team Role Provider Type August Christina MD Family Provider Physician Primary Care Provider Specialty: Internal Medicine Address: [address] [place] [address], [id number] Email: [email or web address] PA-C Attending Provider Non-Staff Referring Provider Specialty: Orthopedic Surgery Address: [address] [place] [address], [place], [address] Email: [email or web address] Plan Of Care PT OP: Lower Back/Lower Extremity Start: 02/06/25 10:50 Freq: Status: Active Protocol: Document 02/06/25 10:51 WOODY (Rec: 02/06/25 12:18 WOODY [id number]) Out-Patient Physical Therapy Visit Information Visit Information Visit Type Initial Evaluation Visit Start Time 10:50 Visit Stop Time 11:40 Visit Number 1 Number of DISTRICT SALES COORDINATOR Visits 0 Progress Note Due 03/08/25 OP-PT Subjective Patient Comments Patient Comments History of current diagnosis: Patient reports about two years ago when he scrubbing the kitchen floor he started to get intense pains in his neck. He was diagnosed with cervical stenosis at that time. He reports the symptoms improved. He reports since that happened he has had increased symptoms in his low back that has caused him to walk more hunched over. He reports he has an MRI on his low back and was told that he has arthritis. He reports that he had an injection in his how back which did not show improvement in his symptoms after that. Occupation: Retired - javascript software engineer electrical for [employer] Physical activities/ hobbies: Not much at the moment - prior to back pain was walking and hiking Pain location: Bilateral low back Pain description: stiff, dull Pain 0-10/10 (current): 0/10 Pain 0-10/10 (worst): 5/10 - when walking Pain 0-10/10 (best): 0/10 Aggravating: walking Alleviating: sitting, using shopping cart Function prior to injury: Independent with all ADLs - was walking every other day or more from 1.5-2.5 miles Function current: Independent with all ADLs - currently only taking short walks with dog around the block Patient goals: Return to walking Functional Tests 6 Minute Walk Test Distance 988 feet Lumbar Spine Range of Motion Lumbar Spine Active Degrees Comments Flexion: WFL Extension: Limited R rotation: Limited L rotation: Limited R side bending: WFL L side bending: WFL Special Tests Other Special Tests Special Tests Lower quarter screen: 5/5 MMT all nerve roots Seated slump: negative bilaterally Therapeutic Exercises Prone Exercises Prone press up Reps/Minutes x10, 5 hold Sitting Exercises Seated lumbar extensio Reps/Minutes x15, 5 hold Physical Therapy Assessment Rehab Potential Rehabilitation Good Potential Evaluation Complexity Number of Personal 0 Factors/ Comorbidities Number of Body 1-2 Systems Impaired Clinical Stable Presentation at Evaluation Impairments Impairments Activity Tolerance,Balance,Coordination,Functional Activities,Functional Mobility,Gait,Pain,Posture,ROM, Strength,Transfers Goals Three Impairment General function Short Term Goal (STG Patient will report a GROC of 25% in order to show an ) increase in self-perceived function. STG Duration 3 weeks Halfway Goal (LTG) Patient will report a GROC of 50% in order to show an increase in self-perceived function. LTG Duration 6 weeks Two Impairment Gait Short Term Goal (STG Patient will ambulate with upright normalized gait ) posture for 3 minutes. STG Duration 3 weeks Batch Tester Goal (LTG) Patient will ambulate with upright normalized gait posture for 6 minutes. LTG Duration 6 weeks One Impairment Walking capacity Short Term Goal (STG Patient will demonstrate an increase in 6mWT distance ) to 1,080' in order to better function with ambulating around his community. STG Duration 3 weeks Halfway Goal (LTG) Patient will demonstrate an increase in 6mWT distance to 1,180' in order to better function with ambulating around his community. LTG Duration 6 weeks Assessment Summary Assessment Patient presenting to PT with complaints of bilateral low back pain that is limiting function with walking around his community and is causing him to feel off balance. Objective investigation revealed deficits in lumbar ROM (See objective measures: extension, bilateral rotation), and walking capacity (see objective measures: 6mWT), and no peripheralization of symptoms with repeated movement testing. Presentation is consistent with low back pain with mobility deficits and patient will benefit from PT to address deficits and return to prior level of function. Physical Therapy Plan Frequency and Duration Frequency of 2x/Week Treatment Duration of 12 treatment (weeks) Plan of Care Start 02/06/25 Plan of Care End 05/07/25 Date Therapeutic Interventions Therapeutic Balance Training,Coordination Training,Gait Training, Interventions Home Exercise Program,Joint Mobilizations,Manual Therapy,Neuromuscular Re-education,Patient/Caregiver Education,Self-Care/Home Management,Soft Tissue Mobilization,Taping,Therapeutic Activities,Therapeutic Exercises Modalities Biofeedback,Cold Pack/Ice Massage,Electric Stimulation, Hot Packs,Infrared Therapy,Iontophoresis,Traction- Mechanical,Ultrasound,Vasopneumatic Devices Next Visit Focus/Plan Next Note Type Treatment Note Next Visit Plan Initiate treatment with focus on lumbar mobility, particularly extension, and strengthening of the back in extension posture. Current HEP: Prone press up Seated lumbar extension stretch Plan of Care Dates Plan of Care Start Date 02/06/25 Plan of Care End Date 05/07/25 Electronically Signed by: Sandra Red, PT 02/06/25 [id number] If you are in agreement with this Plan of Care, please return a signed and dated copy. I have reviewed this Plan of Care and certify that the skilled therapy services above are required to meet the patient?s needs. Physician Signature Date Printed Name and Credentials Clinical Instructor Signature Printed Name and Credentials
--- NOTE | 2025-02-08 12:14 | PT.OTN ---
Current Diagnoses Spondylosis without myelopathy or radiculopathy, lumbar region (02/08/25) Strain of muscle, fascia and tendon of lower back, subsequent encounter (02/08/25) Physical Therapy Treatment Note PT OP: Lower Back/Lower Extremity Start: 02/06/25 10:50 Freq: Status: Active Protocol: Document 02/08/25 10:48 JZ (Rec: 02/08/25 12:14 JZ [id number]) Out-Patient Physical Therapy Visit Information Visit Information Visit Type Treatment Note Visit Start Time 10:50 Visit Stop Time 11:30 Visit Number 2 Progress Note Due 03/08/25 OP-PT Subjective Patient Comments Patient Comments Patient reports he has been working on his home exercises. Therapeutic Exercises Prone Exercises Prone press up Reps/Minutes x30, 5 hold Sitting Exercises Seated rotations Reps/Minutes x15 each side, 10 hold Seated hip hinge Reps/Minutes 3x10 Comments Cues for maintaining lumbar extension throughout movement Seated lumbar extensio Reps/Minutes x30, 5 hold Standing Exercises Sit to stand Reps/Minutes 3x10 Comments Cues for lumbar extension throughout movement and hip hinge to initiate Physical Therapy Assessment Goals Three Impairment General function Short Term Goal (STG Patient will report a GROC of 25% in order to show an ) increase in self-perceived function. STG Duration 3 weeks Skilled Nursing Goal (LTG) Patient will report a GROC of 50% in order to show an increase in self-perceived function. LTG Duration 6 weeks Two Impairment Gait Short Term Goal (STG Patient will ambulate with upright normalized gait ) posture for 3 minutes. STG Duration 3 weeks Skilled Nursing Goal (LTG) Patient will ambulate with upright normalized gait posture for 6 minutes. LTG Duration 6 weeks One Impairment Walking capacity Short Term Goal (STG Patient will demonstrate an increase in 6mWT distance ) to 1,080' in order to better function with ambulating around his community. STG Duration 3 weeks It Training Specialist Goal (LTG) Patient will demonstrate an increase in 6mWT distance to 1,180' in order to better function with ambulating around his community. LTG Duration 6 weeks Assessment Summary Assessment Treatment focused on lumbar extension ROM. Patient tolerated treatment well with no increases in pain levels and subjective improvements in extension ROM. Plan next session to follow up on home exercises and continue with plan of care. Physical Therapy Plan Frequency and Duration Frequency of 2x/Week Treatment Duration of 12 treatment (weeks) Plan of Care Start 10/22/25 Date Plan of Care End 05/07/25 Date Next Visit Focus/Plan Next Note Type Treatment Note Next Visit Plan Initiate treatment with focus on lumbar mobility, particularly extension, and strengthening of the back in extension posture. Current HEP: Prone press up Seated lumbar extension stretch Seated rotations Sit to stand
--- NOTE | 2025-02-11 14:40 | PT.OTN ---
Current Diagnoses Spondylosis without myelopathy or radiculopathy, lumbar region (02/11/25) Strain of muscle, fascia and tendon of lower back, subsequent encounter (02/11/25) Physical Therapy Treatment Note PT OP: Lower Back/Lower Extremity Start: 02/06/25 10:50 Freq: Status: Active Protocol: Document 02/11/25 13:56 SP (Rec: 02/11/25 14:41 SP [id number]) Out-Patient Physical Therapy Visit Information Visit Information Visit Type Treatment Note Visit Start Time 13:55 Visit Stop Time 14:40 Visit Number 4 Number of BOOTMAKER HAND Visits 1 Progress Note Due 03/08/25 OP-PT Subjective Patient Comments Patient Comments Pt reports not sure doing all HEP correctly, wants to review. States is a prone sleeper. Therapeutic Exercises Prone Exercises Prone press up Side bilateral Equipment Used elevated on forearms, flat on table Reps/Minutes x30 max, 5 hold Comments cued slow and keep hips on table Standing Exercises Anterior Chain Stretch Standing Exercise trialed end tx (lumbar extension) Name Equipment Used hands on hips Reps/Minutes 3 reps, 3 sec hold Comments good feedback stretch to back Wall Posture Standing Exercise added to HEP with HO Name Equipment Used *can't quite get head fully back to wall but improvement in alignment Reps/Minutes 10 sec hold x5 reps Comments cued spine roll up wall, CS retract. neutral spine, arms at sides palm fwd Sit to stand Reps/Minutes 3x10 Comments Cues for lumbar extension throughout movement and hip hinge to initiate Therapeutic Activity Therapeutic Activity Sleeping Positioning Comments spent much time safety spinal support and alignment, ed use of pillows each position, provided HOs for self comfort. Pillow use during tx found comfortable and will incorporate home. Postural Education Name sitting & standing then hip hinge body mechanics Comments Provided HOs for education support postural awareness, with good feedback response for carryover. Manual Therapy Treatment Consent Patient gave verbal Yes consent for manual treatment Soft Tissue Mobilization Anterior Chain flexibility Body Location pecs, abdominals, TFL, Prox quad Mobilization Type Rolling Intensity/Depth Moderate Body Position Hooklying Comments L>R pec & TFL tightness Physical Therapy Assessment Goals Three Impairment General function Short Term Goal (STG Patient will report a GROC of 25% in order to show an ) increase in self-perceived function. STG Duration 3 weeks Dryer And Washer Mechanic Goal (LTG) Patient will report a GROC of 50% in order to show an increase in self-perceived function. LTG Duration 6 weeks Two Impairment Gait Short Term Goal (STG Patient will ambulate with upright normalized gait ) posture for 3 minutes. STG Duration 3 weeks Residential Goal (LTG) Patient will ambulate with upright normalized gait posture for 6 minutes. LTG Duration 6 weeks One Impairment Walking capacity Short Term Goal (STG Patient will demonstrate an increase in 6mWT distance ) to 1,080' in order to better function with ambulating around his community. STG Duration 3 weeks Residential Goal (LTG) Patient will demonstrate an increase in 6mWT distance to 1,180' in order to better function with ambulating around his community. LTG Duration 6 weeks Assessment Summary Assessment Pt reports decreased anterior chain tension post manual . Cues for and education on postural awareness with hand outs provided, and use of pillows for spinal alignment can decreased back tightness. Incorported wall posture for self feedback awareness found helpful can do anywhere. Physical Therapy Plan Frequency and Duration Frequency of 2x/Week Treatment Duration of 12 treatment (weeks) Plan of Care Start 02/06/25 Date Plan of Care End 05/07/25 Date Therapeutic Interventions Therapeutic Balance Training,Coordination Training,Gait Training, Interventions Home Exercise Program,Joint Mobilizations,Manual Therapy,Neuromuscular Re-education,Patient/Caregiver Education,Self-Care/Home Management,Soft Tissue Mobilization,Taping,Therapeutic Activities,Therapeutic Exercises Modalities Biofeedback,Cold Pack/Ice Massage,Electric Stimulation, Hot Packs,Infrared Therapy,Iontophoresis,Traction- Mechanical,Ultrasound,Vasopneumatic Devices Next Visit Focus/Plan Next Note Type Treatment Note Next Visit Plan Initiate treatment with focus on lumbar mobility, particularly extension, and strengthening of the back in extension posture. Current HEP: Prone press up Seated lumbar extension stretch Seated rotations Sit to stand
--- NOTE | 2025-02-14 14:30 | PT.OTN ---
Current Diagnoses Spondylosis without myelopathy or radiculopathy, lumbar region (02/14/25) Strain of muscle, fascia and tendon of lower back, subsequent encounter (02/14/25) Physical Therapy Treatment Note PT OP: Lower Back/Lower Extremity Start: 02/06/25 10:50 Freq: Status: Active Protocol: Document 02/14/25 13:53 SP (Rec: 02/14/25 14:35 SP [id number]) Out-Patient Physical Therapy Visit Information Visit Information Visit Type Treatment Note Visit Start Time 13:50 Visit Stop Time 14:30 Visit Number 5 Number of LAP GRINDER Visits 2 Progress Note Due 03/08/25 OP-PT Subjective Patient Comments Patient Comments Pt reports thinks the exercises are helping his posture little more upright. The pillows between the legs did help his back decrease discomfort. Therapeutic Exercises Prone Exercises Prone press up Side bilateral Equipment Used elevated on forearms, flat on table Reps/Minutes 10 reps, 30 hold each Comments cued slow and keep hips on floor Standing Exercises Resisted Shoulder Extension Standing Exercise added to HEP with HO Name Side bilateral Resistance Tb #5 Reps/Minutes 10 reps x2 Comments cued upright posture Stretching Standing Exercise 1. Pec 2. Hip Flexor 3. Calf: added to HEP with HO Name Side bilateral Reps/Minutes 60 sec each x2 reps Comments cued CS retraction head on towel, humeral ER, palm fwd Wall Posture Standing Exercise reviewed HEP Name Resistance folded towel behind head Equipment Used *can't quite get head fully back to wall but improvement in alignment Reps/Minutes 30 sec hold x5 reps Comments cued spine roll up wall, CS retract. neutral spine, arms at sides palm fwd Therapeutic Activity Therapeutic Activity on/off floor transfers Name trialed to allow HEP on floor vs bed, Functional strengthening Reps/Minutes 1 reps Comments LAP GRINDER demo'd sequencing use of chair support stand<> 1/2 kneel<> tall kneel<> quadruped<> prone vs SL then prone . Pt improved confidence in performance use of chair. Physical Therapy Assessment Goals Three Impairment General function Short Term Goal (STG Patient will report a GROC of 25% in order to show an ) increase in self-perceived function. STG Duration 3 weeks Last Trimmer Goal (LTG) Patient will report a GROC of 50% in order to show an increase in self-perceived function. LTG Duration 6 weeks Two Impairment Gait Short Term Goal (STG Patient will ambulate with upright normalized gait ) posture for 3 minutes. STG Duration 3 weeks Last Trimmer Goal (LTG) Patient will ambulate with upright normalized gait posture for 6 minutes. LTG Duration 6 weeks One Impairment Walking capacity Short Term Goal (STG Patient will demonstrate an increase in 6mWT distance ) to 1,080' in order to better function with ambulating around his community. STG Duration 3 weeks Last Trimmer Goal (LTG) Patient will demonstrate an increase in 6mWT distance to 1,180' in order to better function with ambulating around his community. LTG Duration 6 weeks Assessment Summary Assessment Pt improved more upright posture, I don't feel as much tightness front of my shoulders and hips. Progressed anterior chain mobility with added stretching today then actively working posterior chain in standing at wall, added resisted UE extension and prone press ups. Improved postural corrections during resisted stepping back and lateral stepping then step ups. Will continue to Physical Therapy Plan Frequency and Duration Frequency of 2x/Week Treatment Duration of 12 treatment (weeks) Plan of Care Start 02/06/25 Date Plan of Care End 05/07/25 Date Therapeutic Interventions Therapeutic Balance Training,Coordination Training,Gait Training, Interventions Home Exercise Program,Joint Mobilizations,Manual Therapy,Neuromuscular Re-education,Patient/Caregiver Education,Self-Care/Home Management,Soft Tissue Mobilization,Taping,Therapeutic Activities,Therapeutic Exercises Modalities Biofeedback,Cold Pack/Ice Massage,Electric Stimulation, Hot Packs,Infrared Therapy,Iontophoresis,Traction- Mechanical,Ultrasound,Vasopneumatic Devices Next Visit Focus/Plan Next Note Type Treatment Note Next Visit Plan Initiate treatment with focus on lumbar mobility, particularly extension, and strengthening of the back in extension posture. Next add quadruped UE & LE ext on mat floor. Add walking with dinero bag on his head, carryover posture with mobility. Current HEP: Prone press up Seated lumbar extension stretch Seated rotations Sit to stand wall posture Stretching: pec, hip flexor, calf resisted shld ext
--- NOTE | 2025-02-19 12:16 | PT.OTN ---
Current Diagnoses Spondylosis without myelopathy or radiculopathy, lumbar region (02/19/25) Strain of muscle, fascia and tendon of lower back, subsequent encounter (02/19/25) Physical Therapy Treatment Note PT OP: Lower Back/Lower Extremity Start: 02/06/25 10:50 Freq: Status: Active Protocol: Document 02/19/25 11:36 SP (Rec: 02/19/25 12:30 SP [id number]) Out-Patient Physical Therapy Visit Information Visit Information Visit Type Treatment Note Visit Start Time 11:36 Visit Stop Time 12:16 Visit Number 6 Number of I&C TECH Visits 3 Progress Note Due 03/08/25 OP-PT Subjective Patient Comments Patient Comments Pt reports is walking further before back pain starts to kick in, more aware for forward posture making corrections. Compliant with HEP 2x/day and incorporates stretching when out walking as needed. Therapeutic Exercises Prone Exercises Prone press up Side bilateral Equipment Used elevated on forearms, anterior pelvis on mat Reps/Minutes 10 reps, 10 hold each Comments cued slow and keep hips on floor, chin tuck CS retraction neutral Standing Exercises Paloff Press Standing Exercise added to HEP with HO Name Side bilateral Resistance TB #5 dark blue Reps/Minutes 2x10 reps each side Resisted Shoulder Extension Standing Exercise reviewed HEP Name Side bilateral Resistance Tb #5 dark blue Reps/Minutes 10 reps x2, 2 sec hold Comments improved upright posture, arms to side legs Stretching Standing Exercise 1. Pec 2. Hip Flexor 3. Calf: added to HEP with HO Name Side bilateral Equipment Used 1. doorway 2. body solid post (assimulate out walks) 3. off edge step Reps/Minutes 60 sec each x2 reps Anterior Chain Stretch Equipment Used hands on hips Reps/Minutes 3 reps, 3 sec hold Comments good feedback stretch to back Wall Posture Standing Exercise reviewed HEP Name Resistance folded towel behind head Equipment Used *can't quite get head fully back to wall but improvement in alignment Reps/Minutes 30 sec hold x5 reps Comments cued CS retraction head on towel, humeral ER, palm fwd Sit to stand Resistance arms across chest Equipment Used large chair Reps/Minutes 10 reps Comments Cues for lumbar extension throughout movement during hip hinge Other Exercises quadruped Bird Dog Other Exercise Name Trialed in PT: UEs ext, LE Ext, then added UE & LE together Reps/Minutes 12 reps total Comments max cues for opposite UE/LE coordination, challenging Therapeutic Activity Therapeutic Activity on/off floor transfers Name trialed to allow HEP on floor vs bed, Functional strengthening Reps/Minutes 1 reps Comments good form on floor can reach floor, slow descend, use Physical Therapy Assessment Goals Three Impairment General function Short Term Goal (STG Patient will report a GROC of 25% in order to show an ) increase in self-perceived function. STG Duration 3 weeks Convex Grinder Goal (LTG) Patient will report a GROC of 50% in order to show an increase in self-perceived function. LTG Duration 6 weeks Two Impairment Gait Short Term Goal (STG Patient will ambulate with upright normalized gait ) posture for 3 minutes. STG Duration 3 weeks Convex Grinder Goal (LTG) Patient will ambulate with upright normalized gait posture for 6 minutes. LTG Duration 6 weeks One Impairment Walking capacity Short Term Goal (STG Patient will demonstrate an increase in 6mWT distance ) to 1,080' in order to better function with ambulating around his community. STG Duration 3 weeks [facility] Goal (LTG) Patient will demonstrate an increase in 6mWT distance to 1,180' in order to better function with ambulating around his community. LTG Duration 6 weeks Assessment Summary Assessment Pt improved upright corrections. Progressed resisted standing UE ext and antirotation press outs with cues for postural alignment scap retraction engagment. Pt reports no pain throughout tx, good effort maintaining posture alignment. PRovided HO zelalem medeiros added this tx to HEP. CHallenged by quadruped UE/LE ext coordination to continue ext based ther ex. Physical Therapy Plan Frequency and Duration Frequency of 2x/Week Treatment Duration of 12 treatment (weeks) Plan of Care Start 02/06/25 Date Plan of Care End 05/07/25 Date Therapeutic Interventions Therapeutic Balance Training,Coordination Training,Gait Training, Interventions Home Exercise Program,Joint Mobilizations,Manual Therapy,Neuromuscular Re-education,Patient/Caregiver Education,Self-Care/Home Management,Soft Tissue Mobilization,Taping,Therapeutic Activities,Therapeutic Exercises Modalities Biofeedback,Cold Pack/Ice Massage,Electric Stimulation, Hot Packs,Infrared Therapy,Iontophoresis,Traction- Mechanical,Ultrasound,Vasopneumatic Devices Next Visit Focus/Plan Next Note Type Treatment Note Next Visit Plan Recheck resisted band exercises. Continue bird dog in PT. POC: lumbar mobility, particularly extension, and strengthening of the back in extension posture. Next add quadruped UE & LE ext on mat floor. Add walking with dinero bag on his head, carryover posture with mobility. Current HEP: Prone press up Seated lumbar extension stretch Seated rotations Sit to stand wall posture Stretching: pec, hip flexor, calf resisted shld ext & paloff press
--- NOTE | 2025-02-22 09:59 | PT.OTN ---
Current Diagnoses Spondylosis without myelopathy or radiculopathy, lumbar region (02/22/25) Strain of muscle, fascia and tendon of lower back, subsequent encounter (02/22/25) Physical Therapy Treatment Note PT OP: Lower Back/Lower Extremity Start: 02/06/25 10:50 Freq: Status: Active Protocol: Document 02/22/25 07:30 JZ (Rec: 02/22/25 09:58 JZ [id number]) Out-Patient Physical Therapy Visit Information Visit Information Visit Type Treatment Note Visit Start Time 09:00 Visit Stop Time 09:40 Visit Number 7 Number of OIL SALES AND SERVICE REP Visits 0 Progress Note Due 03/08/25 OP-PT Subjective Patient Comments Patient Comments Patient reports he has been doing his home exercises. Therapeutic Exercises Prone Exercises Prone press up Side bilateral Equipment Used elevated on forearms, anterior pelvis on mat Reps/Minutes x30 reps, 5 hold Sitting Exercises Seated rotations Reps/Minutes x10 each side, 10 hold Seated hip hinge Reps/Minutes x10 Comments Cues for maintaining lumbar extension throughout movement Seated lumbar extensio Reps/Minutes x30, 5 hold Standing Exercises Paloff Press Side bilateral Resistance cable column Reps/Minutes 2x10 reps each side Resisted Shoulder Extension Side bilateral Resistance Tb #5 dark blue Reps/Minutes 10 reps x2, 2 sec hold Comments improved upright posture, arms to side legs Sit to stand Resistance arms across chest Equipment Used large chair Reps/Minutes 2x10 Comments Cues for lumbar extension throughout movement during hip hinge Physical Therapy Assessment Goals Three Impairment General function Short Term Goal (STG Patient will report a GROC of 25% in order to show an ) increase in self-perceived function. STG Duration 3 weeks Poker Dealer Goal (LTG) Patient will report a GROC of 50% in order to show an increase in self-perceived function. LTG Duration 6 weeks Two Impairment Gait Short Term Goal (STG Patient will ambulate with upright normalized gait ) posture for 3 minutes. STG Duration 3 weeks Poker Dealer Goal (LTG) Patient will ambulate with upright normalized gait posture for 6 minutes. LTG Duration 6 weeks One Impairment Walking capacity Short Term Goal (STG Patient will demonstrate an increase in 6mWT distance ) to 1,080' in order to better function with ambulating around his community. STG Duration 3 weeks [facility] Goal (LTG) Patient will demonstrate an increase in 6mWT distance to 1,180' in order to better function with ambulating around his community. LTG Duration 6 weeks Assessment Summary Assessment Treatment focused on continued lumbar extension ROM and posterior chain strengthening. Patient tolerated treatment well with no increases in pain levels. Plan next session to follow up on home exercises over weekend and add walking marches on other gait training exercises. Physical Therapy Plan Frequency and Duration Frequency of 2x/Week Treatment Duration of 12 treatment (weeks) Plan of Care Start 02/06/25 Date Plan of Care End 05/07/25 Date Next Visit Focus/Plan Next Note Type Treatment Note Next Visit Plan Recheck resisted band exercises. Continue bird dog in PT. POC: lumbar mobility, particularly extension, and strengthening of the back in extension posture. Next add quadruped UE & LE ext on mat floor. Add walking with dinero bag on his head, carryover posture with mobility. Current HEP: Prone press up Seated lumbar extension stretch Seated rotations Sit to stand wall posture Stretching: pec, hip flexor, calf resisted shld ext & paloff press
--- NOTE | 2025-02-25 11:36 | PT.OTN ---
Current Diagnoses Spondylosis without myelopathy or radiculopathy, lumbar region (02/25/25) Strain of muscle, fascia and tendon of lower back, subsequent encounter (02/25/25) Physical Therapy Treatment Note PT OP: Lower Back/Lower Extremity Start: 02/06/25 10:50 Freq: Status: Active Protocol: Document 02/25/25 10:52 SP (Rec: 02/25/25 11:36 SP [id number]) Out-Patient Physical Therapy Visit Information Visit Information Visit Type Treatment Note Visit Start Time 10:50 Visit Stop Time 11:32 Visit Number 8 Number of PUBLIC DEFENDER Visits 1 Progress Note Due 03/08/25 OP-PT Subjective Patient Comments Patient Comments Pt did good over the weekend. It takes him about 1/2 hr with HEP, 2x/day. He states the most challenging for his strength is the prone press ups with arm weakness. Therapeutic Exercises Prone Exercises Prone press up Side bilateral Equipment Used elevated on forearms, Reps/Minutes x30 reps, 5 hold Comments cues try keep anterior pelvis on mat Sitting Exercises Seated rotations Sitting Exercise 1. resistance band rotations 2. Rotation stretch Name Side bilateral Resistance TB #6 purple Reps/Minutes 1. x15 each side 2. x10 each side, 10 hold Comments cued Seated hip hinge Reps/Minutes x10 Comments Cues for maintaining lumbar extension throughout movement Seated lumbar extensio Reps/Minutes x30, 5 hold Standing Exercises Wall Slide Ys off Wall Standing Exercise added to HEp with HO Name Side bilateral Resistance AROM Reps/Minutes 2 SH x10 Comments significant improved postural activation Paloff Press Side bilateral Resistance TB #6 (dark blue home) Reps/Minutes 2x20 reps each side Resisted Shoulder Extension Side bilateral Resistance Tb #5>6 purple Reps/Minutes 10 reps x2, 2 sec hold Comments improved upright posture, arms to side legs Stretching Standing Exercise 1. Pec 2. Hip Flexor 3. Calf reviewed Name Side bilateral Equipment Used 1. doorway 2. body solid post (assimulate out walks) 3. off edge step Reps/Minutes 60 sec each x2 reps Anterior Chain Stretch Standing Exercise extend back Name Equipment Used hands on hips Reps/Minutes 3 reps, 3 sec hold Comments good feedback stretch to back Other Exercises Thread Needle Other Exercise Name Trialed in PT Side bilateral Resistance AROM Reps/Minutes both directions 5 each side quadruped Bird Dog Other Exercise Name UE/ LE ext Side bilateral Resistance AROM Reps/Minutes 12 reps each side Comments improved UE/LE coordination, stability and trunk ext neutral Physical Therapy Assessment Goals Three Impairment General function Short Term Goal (STG Patient will report a GROC of 25% in order to show an ) increase in self-perceived function. STG Duration 3 weeks Enamel Sprayer Goal (LTG) Patient will report a GROC of 50% in order to show an increase in self-perceived function. LTG Duration 6 weeks Two Impairment Gait Short Term Goal (STG Patient will ambulate with upright normalized gait ) posture for 3 minutes. STG Duration 3 weeks Care Home Goal (LTG) Patient will ambulate with upright normalized gait posture for 6 minutes. LTG Duration 6 weeks One Impairment Walking capacity Short Term Goal (STG Patient will demonstrate an increase in 6mWT distance ) to 1,080' in order to better function with ambulating around his community. STG Duration 3 weeks Care Home Goal (LTG) Patient will demonstrate an increase in 6mWT distance to 1,180' in order to better function with ambulating around his community. LTG Duration 6 weeks Assessment Summary Assessment Pt good feedback response to resisted and extension and rotation ther ex today. Cues for elongated posturing. Incorporated active upper body extension and rotation inquadruped and Ys off wall today. He reports feels alot beter. Reports no pain throughout tx. Physical Therapy Plan Frequency and Duration Frequency of 2x/Week Treatment Duration of 12 treatment (weeks) Plan of Care Start 02/06/25 Date Plan of Care End 05/07/25 Date Therapeutic Interventions Therapeutic Balance Training,Coordination Training,Gait Training, Interventions Home Exercise Program,Joint Mobilizations,Manual Therapy,Neuromuscular Re-education,Patient/Caregiver Education,Self-Care/Home Management,Soft Tissue Mobilization,Taping,Therapeutic Activities,Therapeutic Exercises Modalities Biofeedback,Cold Pack/Ice Massage,Electric Stimulation, Hot Packs,Infrared Therapy,Iontophoresis,Traction- Mechanical,Ultrasound,Vasopneumatic Devices Next Visit Focus/Plan Next Note Type Treatment Note Next Visit Plan Recheck band seated, standing, Ys off wall, if ok add bird dog and thread needle to HEp with HOs next tx. POC: lumbar mobility, particularly extension, and strengthening of the back in extension posture. Next add quadruped UE & LE ext on mat floor. Add walking with dinero bag on his head, carryover posture with mobility. Current HEP: Prone press up Seated lumbar extension stretch Seated rotations Sit to stand wall posture Stretching: pec, hip flexor, calf resisted shld ext & paloff press
--- NOTE | 2025-02-28 09:48 | PT.OTN ---
Current Diagnoses Spondylosis without myelopathy or radiculopathy, lumbar region (02/28/25) Strain of muscle, fascia and tendon of lower back, subsequent encounter (02/28/25) Physical Therapy Treatment Note PT OP: Lower Back/Lower Extremity Start: 02/06/25 10:50 Freq: Status: Active Protocol: Document 02/28/25 09:08 SP (Rec: 02/28/25 09:51 SP [id number]) Out-Patient Physical Therapy Visit Information Visit Information Visit Type Treatment Note Visit Start Time 09:08 Visit Stop Time 09:48 Visit Number 9 Number of NUTRITION SERVICES ASSOCIATE Visits 2 Progress Note Due 03/08/25 OP-PT Subjective Patient Comments Patient Comments Pt reports feels little better posture, realized has to be mindful of upright posture not just rely on PT exercises to do the corrections. HE presents increased postural alignment at arrival. Cardio Equipment Upper Body Ergometer (UBE) Duration (Minutes) 5 RPM 85 Seat Position standing Height 5.5 Other 1 min f/b Therapeutic Exercises Prone Exercises Prone press up Side bilateral Equipment Used elevated on forearms, Reps/Minutes x30 reps, 5 hold Comments cues try keep anterior pelvis on mat Sitting Exercises Seated rotations Sitting Exercise 1. resistance band rotations 2. TS Rotation stretch Name Side bilateral Resistance TB #6 purple Equipment Used 1. seated on 85cm tball 2. seated on chair Reps/Minutes 1. 2x15 each side 2. x10 each side, 10 hold Comments cued arms across chest Seated hip hinge Equipment Used *ed for scap set and spinal support for lifting items Reps/Minutes x10 Comments Cues for maintaining lumbar extension throughout movement Seated lumbar extensio Resistance arms across chest Reps/Minutes x30, 5 hold Standing Exercises Wall Slide Ys off Wall Standing Exercise reviewed Name Side bilateral Resistance AROM Reps/Minutes 2 SH x10 Comments significant improved postural activation Resisted Shoulder Extension Side bilateral Resistance Tb #5>6 purple Reps/Minutes 10 reps x2, 2 sec hold Comments improved upright posture, arms to side legs Other Exercises Thread Needle Other Exercise Name added to HEP Side bilateral Resistance AROM Reps/Minutes both directions 5 each side quadruped Bird Dog Other Exercise Name UE/ LE ext Side bilateral Resistance AROM Reps/Minutes 12 reps each side Comments improved UE/LE coordination, stability and trunk ext neutral Gait Training Gait Activity Postural Alignment Standing PreGait Comments time spent discussion posture during and pre gait: elongation, scap squeeze 6MWT Distance/Duration 1064 ft Comments no LBP, improved but still slight trunk flexion walking Physical Therapy Assessment Goals Three Impairment General function Short Term Goal (STG Patient will report a GROC of 25% in order to show an ) increase in self-perceived function. STG Duration 3 weeks Dock Supervisor Goal (LTG) Patient will report a GROC of 50% in order to show an increase in self-perceived function. LTG Duration 6 weeks Two Impairment Gait Short Term Goal (STG Patient will ambulate with upright normalized gait ) posture for 3 minutes. STG Duration 3 weeks Residential Goal (LTG) Patient will ambulate with upright normalized gait posture for 6 minutes. LTG Duration 6 weeks One Impairment Walking capacity Short Term Goal (STG Patient will demonstrate an increase in 6mWT distance ) to 1,080' in order to better function with ambulating around his community. 02/28/25: GOAL MET: 1064 ft in 6 min with no back pain, intermittent postural corrections STG Duration 3 weeks GOAL MET 02/28/25 Dock Supervisor Goal (LTG) Patient will demonstrate an increase in 6mWT distance to 1,180' in order to better function with ambulating around his community. 02/28/25: 1064 ft in 6 min with no back pain, intermittent postural corrections LTG Duration 6 weeks Assessment Summary Assessment Pt good effort throughout tx, cues as needed for spinal extension and rotation to improved posture. Continue instruction with thread the needle and upright posture during gait assess back alignment comfort during gait distance today how doing toward 6MWT GOAL able to completed 1064 feet with no back pain minimal trunk flexion compared to past weeks. Physical Therapy Plan Frequency and Duration Frequency of 2x/Week Treatment Duration of 12 treatment (weeks) Plan of Care Start 02/06/25 Date Plan of Care End 05/07/25 Date Therapeutic Interventions Therapeutic Balance Training,Coordination Training,Gait Training, Interventions Home Exercise Program,Joint Mobilizations,Manual Therapy,Neuromuscular Re-education,Patient/Caregiver Education,Self-Care/Home Management,Soft Tissue Mobilization,Taping,Therapeutic Activities,Therapeutic Exercises Modalities Biofeedback,Cold Pack/Ice Massage,Electric Stimulation, Hot Packs,Infrared Therapy,Iontophoresis,Traction- Mechanical,Ultrasound,Vasopneumatic Devices Next Visit Focus/Plan Next Note Type Treatment Note Next Visit Plan Recheck HEP, add bird dog to HEP POC: lumbar mobility, particularly extension, and strengthening of the back in extension posture. Next Add walking with dinero bag on his head, carryover posture with mobility. Current HEP: Prone press up Seated lumbar extension stretch Seated rotations Sit to stand wall posture Stretching: pec, hip flexor, calf resisted shld ext & paloff press Ys off wall Thread needle
--- NOTE | 2025-03-05 09:22 | PT.OPPN ---
Current Diagnoses Spondylosis without myelopathy or radiculopathy, lumbar region (03/05/25) Strain of muscle, fascia and tendon of lower back, subsequent encounter (03/05/25) Physical Therapy Progress Note PT OP: Lower Back/Lower Extremity Start: 02/06/25 10:50 Freq: Status: Active Protocol: Document 03/05/25 07:29 WOODY (Rec: 03/05/25 09:21 WOODY [id number]) Out-Patient Physical Therapy Visit Information Visit Information Visit Type Progress Note Visit Start Time 07:30 Visit Stop Time 08:10 Visit Number 10 Number of MANAGER ANIMATION Visits 0 Progress Note Due 04/04/25 OP-PT Subjective Patient Comments Patient Comments Patient reports he feels like he is making slow progress towards his goals. He notes that he often forgets about his posture while ambulating. He reports his GROC is 25% which is made up of improvements in ambulating with more spine extension. He reports the remaining 75% is made up of endurance with walking upright in extension. He reports that he is not having any pain in his low back at this time. Functional Tests 6 Minute Walk Test Distance 1209' Therapeutic Exercises Prone Exercises Active prone extension Prone Exercise Name arms by side, actively extending Reps/Minutes 3x10 Prone press up Side bilateral Equipment Used elevated on forearms, Reps/Minutes x30 reps, 5 hold Comments cues try keep anterior pelvis on mat Sitting Exercises Seated rotations Sitting Exercise PROM Name Side bilateral Reps/Minutes 2x10 each side Physical Therapy Assessment Goals Three Impairment General function Short Term Goal (STG Patient will report a GROC of 25% in order to show an ) increase in self-perceived function. 03/05/2025 - Met STG Duration 3 weeks Director Of Dietary Goal (LTG) Patient will report a GROC of 50% in order to show an increase in self-perceived function. 03/05/2025 - In progress LTG Duration 6 weeks Two Impairment Gait Short Term Goal (STG Patient will ambulate with upright normalized gait ) posture for 3 minutes. 03/05/2025 - Met STG Duration 3 weeks Director Of Dietary Goal (LTG) Patient will ambulate with upright normalized gait posture for 6 minutes. 03/05/2025 - Met LTG Duration 6 weeks One Impairment Walking capacity Short Term Goal (STG Patient will demonstrate an increase in 6mWT distance ) to 1,080' in order to better function with ambulating around his community. 11/13/25: GOAL MET: 1064 ft in 6 min with no back pain, intermittent postural corrections 03/05/2025 - Met (1,209') STG Duration 3 weeks GOAL MET 02/28/25 Director Of Dietary Goal (LTG) Patient will demonstrate an increase in 6mWT distance to 1,180' in order to better function with ambulating around his community. 02/28/25: 1064 ft in 6 min with no back pain, intermittent postural corrections 03/05/2025 - Met (1,209') LTG Duration 6 weeks Assessment Summary Assessment Patient presenting to PT after 9 visits for low back mobility deficits and walking capacity deficits. Patient has made improvements with walking capacity and function but still is limited with maintaining upright posture for extended distances. Objective investigation revealed improvement with walking capacity (see measures: 6mWT) and function (see GROC). Patient will continue to benefit from PT for four more weeks to continue to progress posterior chain strength and walking capacity with upright posture and transition to independent management. Physical Therapy Plan Frequency and Duration Frequency of 2x/Week Treatment Duration of 12 treatment (weeks) Plan of Care Start 02/06/25 Date Plan of Care End 05/07/25 Date Next Visit Focus/Plan Next Note Type Treatment Note Next Visit Plan Recheck HEP, add bird dog to HEP POC: Continue with plan of care focused on lumbar mobility, particularly extension, and strengthening of the back in extension posture. Next Add walking with dinero bag on his head, carryover posture with mobility. Current HEP: Prone press up Seated lumbar extension stretch Seated rotations Sit to stand wall posture Stretching: pec, hip flexor, calf resisted shld ext & paloff press Ys off wall Thread needle
--- NOTE | 2025-03-08 09:47 | PT.OTN ---
Current Diagnoses Spondylosis without myelopathy or radiculopathy, lumbar region (03/08/25) Strain of muscle, fascia and tendon of lower back, subsequent encounter (03/08/25) Physical Therapy Treatment Note PT OP: Lower Back/Lower Extremity Start: 02/06/25 10:50 Freq: Status: Active Protocol: Document 03/08/25 09:05 SP (Rec: 03/08/25 09:56 SP [id number]) Out-Patient Physical Therapy Visit Information Visit Information Visit Type Treatment Note Visit Note PT 3 min late for appt, TRAFFIC ADMINISTRATOR called him, he thought appt was at 0930 so stated will be there soon. TRAFFIC ADMINISTRATOR educated appts are scheduled every 45 min starting at 730. Pt 17 min late. Visit Start Time 09:17 Visit Stop Time 09:47 Visit Number 11 Number of TRAFFIC ADMINISTRATOR Visits 1 Progress Note Due 04/04/25 OP-PT Subjective Patient Comments Patient Comments Pt reports feels good. Some how thought appt was at 0930 and why late. Liked the doorframe arm over head stretch. Therapeutic Exercises Standing Exercises Scaption Over Head with Band Standing Exercise added to HEP with HO Name Side bilateral Resistance TB #2 Reps/Minutes 5 reps x2 Comments little weakness R shld, improves for posture and posterior chain strength Incline Plank with Shld Taps Standing Exercise trialed in PT Name Equipment Used plinth Reps/Minutes 15 reps eachs side alternating Comments tactile & verbal cued more straight back/ pelvis forward Other Exercises quadruped Bird Dog Other Exercise Name Standing planked on counter: UE ext, LE ext, trial together opp UE/LE Side bilateral Resistance AROM (little limited R shld FF) Equipment Used *initially unable coordinate BUE/BLE Reps/Minutes 10 reps each side UE and LE, then trialed UE and LE together Comments cued slow spine elongation straight w/pelvis fwd, slow painfree range- nopn Physical Therapy Assessment Goals Three Impairment General function Short Term Goal (STG Patient will report a GROC of 25% in order to show an ) increase in self-perceived function. 03/05/2025 - Met STG Duration 3 weeks Mapper Goal (LTG) Patient will report a GROC of 50% in order to show an increase in self-perceived function. 03/05/2025 - In progress LTG Duration 6 weeks Two Impairment Gait Short Term Goal (STG Patient will ambulate with upright normalized gait ) posture for 3 minutes. 03/05/2025 - Met STG Duration 3 weeks Group Home Goal (LTG) Patient will ambulate with upright normalized gait posture for 6 minutes. 03/05/2025 - Met LTG Duration 6 weeks One Impairment Walking capacity Short Term Goal (STG Patient will demonstrate an increase in 6mWT distance ) to 1,080' in order to better function with ambulating around his community. 02/28/25: GOAL MET: 1064 ft in 6 min with no back pain, intermittent postural corrections 03/05/2025 - Met (1,209') STG Duration 3 weeks GOAL MET 02/28/25 Group Home Goal (LTG) Patient will demonstrate an increase in 6mWT distance to 1,180' in order to better function with ambulating around his community. 02/28/25: 1064 ft in 6 min with no back pain, intermittent postural corrections 03/05/2025 - Met (1,209') LTG Duration 6 weeks Assessment Summary Assessment Pt shortened tx late for appt. Tx focused on upright postural stretching and posterior chain effort exercises, progressed bird dog (UE/LE ext) in incline standing counter support, reports found felt more active benefits than quadruped. Cued for back alignment and positional UE/LE range with slow paced safety, not push into back strain or pain. Improved functional reach overhead raise during trial with slight resistance to progress back stability and decreased pain for getting items off high shelf and longer walks. Physical Therapy Plan Frequency and Duration Frequency of 2x/Week Treatment Duration of 12 treatment (weeks) Plan of Care Start 02/06/25 Date Plan of Care End 05/07/25 Date Therapeutic Interventions Therapeutic Balance Training,Coordination Training,Gait Training, Interventions Home Exercise Program,Joint Mobilizations,Manual Therapy,Neuromuscular Re-education,Patient/Caregiver Education,Self-Care/Home Management,Soft Tissue Mobilization,Taping,Therapeutic Activities,Therapeutic Exercises Modalities Biofeedback,Cold Pack/Ice Massage,Electric Stimulation, Hot Packs,Infrared Therapy,Iontophoresis,Traction- Mechanical,Ultrasound,Vasopneumatic Devices Next Visit Focus/Plan Next Note Type Treatment Note Next Visit Plan Recheck prone upper body extension, standing over head TB raise and modified bird dog off counter. POC: Continue with plan of care focused on lumbar mobility, particularly extension, and strengthening of the back in extension posture. Next Add walking with dinero bag on his head, carryover posture with mobility. Current HEP: Prone press up Seated lumbar extension stretch Seated rotations Sit to stand wall posture Stretching: pec, hip flexor, calf resisted shld ext & paloff press TB over head raise FF/Scaption Thread needle Counter bird dog
--- NOTE | 2025-03-12 10:12 | PT.OTN ---
Current Diagnoses Spondylosis without myelopathy or radiculopathy, lumbar region (03/12/25) Strain of muscle, fascia and tendon of lower back, subsequent encounter (03/12/25) Physical Therapy Treatment Note PT OP: Lower Back/Lower Extremity Start: 02/06/25 10:50 Freq: Status: Active Protocol: Document 03/12/25 08:59 JZ (Rec: 03/12/25 10:12 JZ [id number]) Out-Patient Physical Therapy Visit Information Visit Information Visit Type Treatment Note Visit Start Time 09:00 Visit Stop Time 09:40 Visit Number 12 Number of LOCKSTITCH WAISTBAND SETTER Visits 0 Progress Note Due 04/04/25 OP-PT Subjective Patient Comments Patient Comments Patient reports he feels like he has been walking around more slouched over recently and he is not sure why. He has a lot of exercises he is doing at home and is wanting to know which ones to focus on. Therapeutic Exercises Prone Exercises Active prone extension Prone Exercise Name arms by side, actively extending Reps/Minutes 2x10 Prone press up Side bilateral Equipment Used elevated on forearms, Reps/Minutes x30 reps, 5 hold Comments cues try keep anterior pelvis on mat Sitting Exercises Seated rotations Sitting Exercise PROM Name Side bilateral Reps/Minutes 2x10 each side Standing Exercises Cable active lumbar extension Standing Exercise Cable column, handle held to chest Name Resistance 20# Reps/Minutes x20 Goblet hold carry Standing Exercise Anti-extension Name Reps/Minutes x40 feet down and back 3 trials Wall Posture Standing Exercise Wall slides arms cued to 90-90 Name Reps/Minutes x10 Physical Therapy Assessment Goals Three Impairment General function Short Term Goal (STG Patient will report a GROC of 25% in order to show an ) increase in self-perceived function. 03/05/2025 - Met STG Duration 3 weeks Longterm Goal (LTG) Patient will report a GROC of 50% in order to show an increase in self-perceived function. 03/05/2025 - In progress LTG Duration 6 weeks Two Impairment Gait Short Term Goal (STG Patient will ambulate with upright normalized gait ) posture for 3 minutes. 03/05/2025 - Met STG Duration 3 weeks Longterm Goal (LTG) Patient will ambulate with upright normalized gait posture for 6 minutes. 03/05/2025 - Met LTG Duration 6 weeks One Impairment Walking capacity Short Term Goal (STG Patient will demonstrate an increase in 6mWT distance ) to 1,080' in order to better function with ambulating around his community. 02/28/25: GOAL MET: 1064 ft in 6 min with no back pain, intermittent postural corrections 03/05/2025 - Met (1,209') STG Duration 3 weeks GOAL MET 02/28/25 Insurance Counsel Goal (LTG) Patient will demonstrate an increase in 6mWT distance to 1,180' in order to better function with ambulating around his community. 02/28/25: 1064 ft in 6 min with no back pain, intermittent postural corrections 03/05/2025 - Met (1,209') LTG Duration 6 weeks Assessment Summary Assessment Treatment focused on lumbar and posterior chain strengthening in full extension/ hyperextension position. Patient tolerated treatment well with no increases in pain and reported muscular fatigue near end of sets. Plan next session to continued with active prone extension and goblet carries for continued spine extension strengthening. Physical Therapy Plan Frequency and Duration Frequency of 2x/Week Treatment Duration of 12 treatment (weeks) Plan of Care Start 02/06/25 Date Plan of Care End 05/07/25 Date Next Visit Focus/Plan Next Note Type Treatment Note Next Visit Plan Recheck prone upper body extension, standing over head TB raise and modified bird dog off counter. POC: Continue with plan of care focused on lumbar mobility, particularly extension, and strengthening of the back in extension posture. Next Add walking with dinero bag on his head, carryover posture with mobility. Current HEP: Prone press up Seated lumbar extension stretch Seated rotations Sit to stand wall posture Stretching: pec, hip flexor, calf resisted shld ext & paloff press TB over head raise FF/Scaption Thread needle Counter bird dog
--- NOTE | 2025-03-18 08:18 | PT.OTN ---
Current Diagnoses Spondylosis without myelopathy or radiculopathy, lumbar region (03/18/25) Strain of muscle, fascia and tendon of lower back, subsequent encounter (03/18/25) Physical Therapy Treatment Note PT OP: Lower Back/Lower Extremity Start: 02/06/25 10:50 Freq: Status: Active Protocol: Document 03/18/25 07:25 WOODY (Rec: 03/18/25 08:16 WOODY [id number]) Out-Patient Physical Therapy Visit Information Visit Information Visit Type Treatment Note Visit Start Time 07:45 Visit Stop Time 08:15 Visit Number 13 Number of EDUCATION OFFICER Visits 0 Progress Note Due 04/04/25 OP-PT Subjective Patient Comments Patient Comments Patient reports his back was feeling good over the weekend and he was able to go for a walk as well. Therapeutic Exercises Supine Exercises Supine hip bridges Reps/Minutes x15 Prone Exercises Active prone extension Prone Exercise Name arms by side, actively extending Reps/Minutes 2x10 Prone press up Side bilateral Equipment Used elevated on forearms, Reps/Minutes x30 reps, 5 hold Comments cues try keep anterior pelvis on mat Sitting Exercises Seated rotations Sitting Exercise PROM long sit Name Side bilateral Reps/Minutes x10 each side, 3 hold Seated lumbar extensio Resistance arms across chest Reps/Minutes x30, 5 hold Standing Exercises Goblet hold carry Standing Exercise Anti-extension Name Reps/Minutes x40 feet down and back 3 trials Physical Therapy Assessment Goals Three Impairment General function Short Term Goal (STG Patient will report a GROC of 25% in order to show an ) increase in self-perceived function. 03/05/2025 - Met STG Duration 3 weeks Staple Shear Operator Goal (LTG) Patient will report a GROC of 50% in order to show an increase in self-perceived function. 03/05/2025 - In progress LTG Duration 6 weeks Two Impairment Gait Short Term Goal (STG Patient will ambulate with upright normalized gait ) posture for 3 minutes. 03/05/2025 - Met STG Duration 3 weeks Staple Shear Operator Goal (LTG) Patient will ambulate with upright normalized gait posture for 6 minutes. 03/05/2025 - Met LTG Duration 6 weeks One Impairment Walking capacity Short Term Goal (STG Patient will demonstrate an increase in 6mWT distance ) to 1,080' in order to better function with ambulating around his community. 02/28/25: GOAL MET: 1064 ft in 6 min with no back pain, intermittent postural corrections 03/05/2025 - Met (1,209') STG Duration 3 weeks GOAL MET 02/28/25 Staple Shear Operator Goal (LTG) Patient will demonstrate an increase in 6mWT distance to 1,180' in order to better function with ambulating around his community. 02/28/25: 1064 ft in 6 min with no back pain, intermittent postural corrections 03/05/2025 - Met (1,209') LTG Duration 6 weeks Assessment Summary Assessment Treatment focused on lumbar extension PROM and strengthening in extended positions. Patient tolerated treatment well with no increases in pain levels. Plan next session to follow up on home exercises and continue with plan of care. Physical Therapy Plan Frequency and Duration Frequency of 2x/Week Treatment Duration of 12 treatment (weeks) Plan of Care Start 02/06/25 Date Plan of Care End 05/07/25 Date Next Visit Focus/Plan Next Note Type Treatment Note Next Visit Plan Recheck prone upper body extension, standing over head TB raise and modified bird dog off counter. POC: Continue with plan of care focused on lumbar mobility, particularly extension, and strengthening of the back in extension posture. Next Add walking with dinero bag on his head, carryover posture with mobility. Current HEP: Prone press up Seated lumbar extension stretch Seated rotations Sit to stand wall posture Stretching: pec, hip flexor, calf resisted shld ext & paloff press TB over head raise FF/Scaption Thread needle Counter bird dog
--- NOTE | 2025-03-22 15:28 | PT.OTN ---
Current Diagnoses Spondylosis without myelopathy or radiculopathy, lumbar region (03/22/25) Strain of muscle, fascia and tendon of lower back, subsequent encounter (03/22/25) Physical Therapy Treatment Note PT OP: Lower Back/Lower Extremity Start: 02/06/25 10:50 Freq: Status: Active Protocol: Document 03/22/25 14:37 JZ (Rec: 03/22/25 15:28 JZ [id number]) Out-Patient Physical Therapy Visit Information Visit Information Visit Type Treatment Note Visit Start Time 14:40 Visit Stop Time 15:20 Visit Number 14 Number of CEMENT STORAGE WORKER Visits 0 Progress Note Due 04/04/25 OP-PT Subjective Patient Comments Patient Comments Patient reports he has been doing his home exercises. He is feeling good at the moment. Therapeutic Exercises Supine Exercises Supine hip bridges Reps/Minutes 2x10 Prone Exercises Active prone extension Prone Exercise Name arms by side, actively extending Reps/Minutes 2x10 Prone press up Side bilateral Equipment Used elevated on forearms, Reps/Minutes x30 reps, 5 hold Comments cues try keep anterior pelvis on mat Sitting Exercises Seated rotations Sitting Exercise PROM long sit Name Side bilateral Reps/Minutes x10 each side, 3 hold Standing Exercises Goblet hold carry Standing Exercise Anti-extension Name Reps/Minutes x40 feet down and back 3 trials Paloff Press Side bilateral Resistance cable column 10# Reps/Minutes x15 each side Physical Therapy Assessment Goals Three Impairment General function Short Term Goal (STG Patient will report a GROC of 25% in order to show an ) increase in self-perceived function. 03/05/2025 - Met STG Duration 3 weeks [facility] Goal (LTG) Patient will report a GROC of 50% in order to show an increase in self-perceived function. 03/05/2025 - In progress LTG Duration 6 weeks Two Impairment Gait Short Term Goal (STG Patient will ambulate with upright normalized gait ) posture for 3 minutes. 03/05/2025 - Met STG Duration 3 weeks [facility] Goal (LTG) Patient will ambulate with upright normalized gait posture for 6 minutes. 03/05/2025 - Met LTG Duration 6 weeks One Impairment Walking capacity Short Term Goal (STG Patient will demonstrate an increase in 6mWT distance ) to 1,080' in order to better function with ambulating around his community. 02/28/25: GOAL MET: 1064 ft in 6 min with no back pain, intermittent postural corrections 03/05/2025 - Met (1,209') STG Duration 3 weeks GOAL MET 02/28/25 [facility] Goal (LTG) Patient will demonstrate an increase in 6mWT distance to 1,180' in order to better function with ambulating around his community. 02/28/25: 1064 ft in 6 min with no back pain, intermittent postural corrections 03/05/2025 - Met (1,209') LTG Duration 6 weeks Assessment Summary Assessment Treatment focused on progressing lumbar strengthening. Patient tolerated treatment well with no increases in pain levels. Plan next session to follow up on home exercises and continue with plan of care. Physical Therapy Plan Frequency and Duration Frequency of 2x/Week Treatment Duration of 12 treatment (weeks) Plan of Care Start 02/06/25 Date Plan of Care End 05/07/25 Date Next Visit Focus/Plan Next Note Type Treatment Note Next Visit Plan Recheck prone upper body extension, standing over head TB raise and modified bird dog off counter. POC: Continue with plan of care focused on lumbar mobility, particularly extension, and strengthening of the back in extension posture. Next Add walking with dinero bag on his head, carryover posture with mobility. Current HEP: Prone press up Seated lumbar extension stretch Seated rotations Sit to stand wall posture Stretching: pec, hip flexor, calf resisted shld ext & paloff press TB over head raise FF/Scaption Thread needle Counter bird dog
--- NOTE | 2025-03-26 10:44 | PT.OTN ---
Current Diagnoses Spondylosis without myelopathy or radiculopathy, lumbar region (03/26/25) Strain of muscle, fascia and tendon of lower back, subsequent encounter (03/26/25) Physical Therapy Treatment Note PT OP: Lower Back/Lower Extremity Start: 02/06/25 10:50 Freq: Status: Active Protocol: Document 03/26/25 09:47 WOODY (Rec: 03/26/25 10:44 WOODY [id number]) Out-Patient Physical Therapy Visit Information Visit Information Visit Type Treatment Note Visit Start Time 09:50 Visit Stop Time 10:30 Visit Number 15 Number of ACTUARIAL TRAINEE Visits 0 Progress Note Due 04/04/25 OP-PT Subjective Patient Comments Patient Comments Patient reports he is feeling good this morning. Therapeutic Exercises Supine Exercises Supine hip bridges Reps/Minutes 2x10 Prone Exercises Active prone extension Prone Exercise Name arms by side, actively extending Reps/Minutes 2x10 Prone press up Side bilateral Equipment Used elevated on forearms, Reps/Minutes x30 reps, 5 hold Comments cues try keep anterior pelvis on mat Sitting Exercises Seated lumbar extensio Resistance arms across chest Reps/Minutes x30, 5 hold Standing Exercises Goblet hold carry Standing Exercise Anti-extension Name Reps/Minutes x40 feet down and back 3 trials Paloff Press Side bilateral Resistance cable column 10# Reps/Minutes x15 each side Physical Therapy Assessment Goals Three Impairment General function Short Term Goal (STG Patient will report a GROC of 25% in order to show an ) increase in self-perceived function. 03/05/2025 - Met STG Duration 3 weeks Drop Forger Goal (LTG) Patient will report a GROC of 50% in order to show an increase in self-perceived function. 03/05/2025 - In progress LTG Duration 6 weeks Two Impairment Gait Short Term Goal (STG Patient will ambulate with upright normalized gait ) posture for 3 minutes. 03/05/2025 - Met STG Duration 3 weeks Drop Forger Goal (LTG) Patient will ambulate with upright normalized gait posture for 6 minutes. 03/05/2025 - Met LTG Duration 6 weeks One Impairment Walking capacity Short Term Goal (STG Patient will demonstrate an increase in 6mWT distance ) to 1,080' in order to better function with ambulating around his community. 02/28/25: GOAL MET: 1064 ft in 6 min with no back pain, intermittent postural corrections 03/05/2025 - Met (1,209') STG Duration 3 weeks GOAL MET 02/28/25 Snf Goal (LTG) Patient will demonstrate an increase in 6mWT distance to 1,180' in order to better function with ambulating around his community. 02/28/25: 1064 ft in 6 min with no back pain, intermittent postural corrections 03/05/2025 - Met (1,209') LTG Duration 6 weeks Assessment Summary Assessment Treatment focused on continued lumbar extension strengthening and ROM. Patient tolerated treatment well with no increases in pain levels. Plan next session to follow up on home exercises and continue with plan of care. Physical Therapy Plan Frequency and Duration Frequency of 2x/Week Treatment Duration of 12 treatment (weeks) Plan of Care Start 02/06/25 Date Plan of Care End 05/07/25 Date Next Visit Focus/Plan Next Note Type Treatment Note Next Visit Plan POC: Continue with plan of care focused on lumbar mobility, particularly extension, and strengthening of the back in extension posture. Next Add walking with dinero bag on his head, carryover posture with mobility. Current HEP: Prone press up Seated lumbar extension stretch Seated rotations Sit to stand wall posture Stretching: pec, hip flexor, calf resisted shld ext & paloff press TB over head raise FF/Scaption Thread needle Counter bird dog
--- NOTE | 2025-03-28 09:38 | PT.OPDS ---
Current Diagnoses Spondylosis without myelopathy or radiculopathy, lumbar region (03/28/25) Strain of muscle, fascia and tendon of lower back, subsequent encounter (03/28/25) Visit Care Team Role Provider Type August Christina MD Family Provider Physician Primary Care Provider Specialty: Internal Medicine Address: [address] [place] [address], [id number] Email: [email or web address] Caicedo PA-C Attending Provider Non-Staff Referring Provider Specialty: Orthopedic Surgery Address: [address] [place] [address], [id number] Email: [email or web address] Visit Number Visit Number 16 Discharge Summary PT OP: Lower Back/Lower Extremity Start: 02/06/25 10:50 Freq: Status: Active Protocol: Document 03/28/25 09:08 WOODY (Rec: 03/28/25 09:38 WOODY [id number]) Out-Patient Physical Therapy Visit Information Visit Information Visit Type Discharge Summary Visit Start Time 09:00 Visit Stop Time 09:30 Visit Number 16 Progress Note Due 04/04/25 OP-PT Subjective Patient Comments Patient Comments Patient reports he is happy with his progress and he feels good about continuing his home exercises independently. He would like for today to be his last formal PT session. Therapeutic Exercises Standing Exercises Paloff Press Side bilateral Resistance green band Reps/Minutes x15 each side Stretching Standing Exercise 1. Pec Name Side bilateral Equipment Used 1. doorway Reps/Minutes 60 sec each x2 reps Wall Posture Standing Exercise Facing wall, Y lift off Name Reps/Minutes x10 Physical Therapy Assessment Goals Three Impairment General function Short Term Goal (STG Patient will report a GROC of 25% in order to show an ) increase in self-perceived function. 03/05/2025 - Met STG Duration 3 weeks [facility] Goal (LTG) Patient will report a GROC of 50% in order to show an increase in self-perceived function. 03/05/2025 - In progress LTG Duration 6 weeks Two Impairment Gait Short Term Goal (STG Patient will ambulate with upright normalized gait ) posture for 3 minutes. 03/05/2025 - Met STG Duration 3 weeks Sap Bi Developer Goal (LTG) Patient will ambulate with upright normalized gait posture for 6 minutes. 03/05/2025 - Met LTG Duration 6 weeks One Impairment Walking capacity Short Term Goal (STG Patient will demonstrate an increase in 6mWT distance ) to 1,080' in order to better function with ambulating around his community. 02/28/25: GOAL MET: 1064 ft in 6 min with no back pain, intermittent postural corrections 03/05/2025 - Met (1,209') STG Duration 3 weeks GOAL MET 02/28/25 Sap Bi Developer Goal (LTG) Patient will demonstrate an increase in 6mWT distance to 1,180' in order to better function with ambulating around his community. 02/28/25: 1064 ft in 6 min with no back pain, intermittent postural corrections 03/05/2025 - Met (1,209') LTG Duration 6 weeks Assessment Summary Assessment Patient presenting to PT after 15 visits for low back pain and gait deficits. Today's session focused on reviewing home exercise program to ensure patient- confidence continuing exercises independently. Because of previously documented improvements, and patient desire for today to be last PT session, patient will be discharged on this date. Physical Therapy Plan Frequency and Duration Frequency of 2x/Week Treatment Duration of 12 treatment (weeks) Plan of Care Start 02/06/25 Date Plan of Care End 05/07/25 Date Next Visit Focus/Plan Next Note Type Treatment Note Next Visit Plan N/A - plan of care to be discharged on this date Current HEP: Prone press up Seated lumbar extension stretch Seated rotations Sit to stand wall posture Stretching: pec, hip flexor, calf resisted shld ext & paloff press TB over head raise FF/Scaption Thread needle Counter bird dog
== END 2025-03-28 11:02 | disposition home or self-care (01) ==
LOC: PHYS 09:00
PROVIDERS: Family Provider Internal Medicine; PCP Internal Medicine; Referring Provider Physician Assistant Surgical; Visit Provider Physician Assistant Surgical
DX: M47.816 Spondylosis without myelopathy or radiculopathy, lumbar region (principal); S39.012D Strain of muscle, fascia and tendon of lower back, subsequent encounter
CPT/HCPCS: 97110; 97116; 97140; 97161; 97530